=== PATIENT | male | born 1945 ===

== ENCOUNTER 2017-10-16 14:20 | Inpatient (IN) | payer MEDICARE ==
[~2017-10-16 14:20] MED LIST: ISOVUE-370 76%-LOCM 1 ML ONE
[2017-10-16 15:58] LABS: #Eosinphils 0.3 thou/uL (0.0-0.7); #Lymphocytes 1.5 thou/uL (1.20-3.40); #Monocytes 0.6 thou/uL (0.11-0.59); #Neutrophils 7.2 thou/uL (1.40-6.50); %Basophils 0.2 % (0.0-1.0); %Eosinophils 3.1 % (0.0-10.0); %Lymphocytes 15.5 % (21.0-51.0); %Monocytes 5.8 % (0.0-10.0); %Neutrophils 75.5 % (42.0-75.0); Hemoglobin 9.8 g/dL (14.0-18.0); Mean Corpuscular HGB CONC 30.9 g/dL (32.0-36.0); Mean Corpuscular Hemoglobin 20.3 pg (27.0-31.0); Mean Corpuscular Volume 65.8 fL (78.0-98.0); Mean Platelet Volume 10.7 fL (7.4-10.4); Platelet Count 205 thou/uL (130-400); RBC Distribution Width 16.3 % (11.5-14.5); White Blood Cell (WBC) Count 9.6 thou/uL (4.8-10.8)
[2017-10-16 16:05] LABS: Bilirubin Negative (Negative); Blood, Urine Negative (Negative); Clarity CLEAR (Clear); Glucose, Urine (Dipstick) 100 mg/dL (Negative); Leukocyte Small (Negative); Nitrite Negative (Negative); Protein, Urine (Dipstick) 100 mg/dL (Neg-Trace); Specific Gravity, Urine 1.007 (1.002-1.036); Urobilinogen 0.2 mg/dL (0.2-1.0); pH, Urine 6.5 (5.0-9.0)
[2017-10-16 16:07] LABS: Bacteria/HPF Rare-Few HPF (None Seen); Hyaline Casts/LPF 0-3 HYALINE CAST LPF (0-3 Hyaline); Pathc Cast-AUWi Flag 0.29 (0-2.49); RBC/HPF 0-3 HPF (0-3); Squamous Epithelial 0-3 HPF (0-3)
[2017-10-16 16:13] LABS: Anisocytosis SLIGHT = 6-15 cells (100X) (0-5/hpf); Elliptocytes SLIGHT = 2-5 cells (100X) (0-1/hpf); Hypochromia SLIGHT = 6-15 cells (100X) (0-5/hpf); Large Platelets SLIGHT; MDiff Complete? YES; Microcytosis SLIGHT = 6-15 cells (100X) (0-5/hpf); Ovalocytes SLIGHT = 2-5 cells (100X) (0-1/hpf); PLT Morphology Comment Appears Adequate; Polychromasia SLIGHT = 2-3 cells (100X) (0-2/hpf); Tear Drops SLIGHT = 2-5 cells (100X) (0-1/hpf)
[2017-10-16 16:17] LABS: ALT (SGPT) 10 U/L (8-55); AST (SGOT) 11 U/L (5-34); Albumin 3.4 g/dL (3.4-4.8); Alkaline Phosphatase 59 U/L (40-150); Anion Gap 9 mmol/L (10-20); BUN (Urea Nitrogen) 21 mg/dL (8.4-25.7); Bilirubin, Total 0.3 mg/dL (0.2-1.2); Calc. Creatinine Clearance 0 mL/min (70-130); Carbon Dioxide 35 mmol/L (23-31); Chloride 97 mmol/L (98-107); Estimated GFR-MDRD 58; Globulin 2.9 g/dL (2.4-3.5); Glucose 228 mg/dL (83-110); Potassium 4.4 mmol/L (3.5-5.1); Protein, Total 6.3 g/dL (5.8-8.1); Sodium 137 mmol/L (136-145)
--- NOTE | 2017-10-16 16:17 | RAD ---
PORTABLE CHEST: 10/16/17 HISTORY: Mental status change. No comparison. Heart is mildly prominent in size although accentuated by this projection. There is mild vascular eng orgement. No focal infiltrate or significant effusion. IMPRESSION: Heart is mildly enlarged with mild vascular engorgement. POS: [facility]
[2017-10-16 16:52] LABS: Calcium 14.5 mg/dL (7.8-10.44)
--- NOTE | 2017-10-16 16:56 | CT ---
CT HEAD NONCONTRAST: HISTORY: Altered mental status. FINDINGS: There is no evidence of acute intracranial hemorrhage or infarct. The ventricles appear normal in si ze, shape, and position. Mild diffuse cortical atrophy, chronic ischemic small vessel disease, and s cattered old lacunar infarcts. No mass effect or shift of midline structures. The visualized parana mei sinuses remain well aerated. Prominent edema and partially visualized, embedded radiodensities w ithin the right facial soft tissues. IMPRESSION: No acute intracranial abnormalities demonstrated. CT face is pending. POS: [facility]
[2017-10-16] MEDS ORDERED: Sodium Chloride 0.9% 1,000 ML IV SCH ×2 (18:00)
[2017-10-16] MEDS ORDERED: Piperacillin/Tazobactam 4.5 GM VIAL ONE (18:01)
--- NOTE | 2017-10-16 18:21 | CT ---
CT MAXILLOFACIAL WITH CONTRAST: 10/16/17 HISTORY: 72-year-old male with facial infection and facial pain. TECHNIQUE: IV injection of 70 mL of Isovue 370. 90 second delayed scan from slightly superior to frontal sinuses to the C5-6 level. FINDINGS: There is a small fluid level in the dependent portion of the sphenoid sinus. Otherwise, the paranasal sinuses are clear. The bilateral tympanomastoid cavities are grossly clear. No periostitis, permeati ve lesion, osteoblastic lesion, osteolytic lesion, or fracture is identified. There is a cluster of m etallic surgical clips in the right submandibular space and along the platysma adjacent to the right submandibular space. There is another cluster of fewer surgical clips more superiorly and laterally a t the interface of a free surgical flap that consists mostly of fatty tissue laterally, and the soft tissue density material in what is probably part of the resected site in the soft tissues superficial to the right masseter muscle. Inferior to that, in the superficial fat in the right anterolateral portion of the face lateral to th e jaw, there are at least two soft tissue density masses that both have exophytic components that pro trude through the skin or at least indent the skin. The more anterior one measures approximately 2.5 x 1.5 x 1.5 cm (axial image 54 of 85 series 5; coronal image 30 of 84, series 700). Located a distanc e of approximately 1.5 to 2 cm posterolateral to that, there is a smaller one measuring approximately 1 x 1.5 x 1 cm, axial image 54 of 85, series 5; coronal image 38 of 84, series 700). There is more i ll-defined soft tissue thickening contiguous from the posterior aspect of that second smaller nodule to the region of multiple surgical clips, which subsequently abuts the anterior aspect of the right p arotid gland. Located much more superiorly, lateral to the right zygomatic arch and lateral to the right temporalis muscle, there is larger soft tissue density measuring approximately 6 cm anteroposterior x 6 cm cran iocaudal x 2 cm transverse (axial image 27 of 85, series 5; coronal image 35 of 84, series 700). This extends to the lateral preseptal, periorbital region. It could represent cellulitis or recurrent elisa plastic tumor. The latter is favored. There is no postseptal/intraorbital invasion. There is not only skin thickening throughout the surgical flap, but also fat stranding in different p ortions of the flap, especially in the right malar region, and the regions superficial to the right s ubmandibular space, consistent with edema. There is no organized fluid collection to indicate a drain able abscess. IMPRESSION: 1. Postsurgical changes in the superficial soft tissues of the right face, with surgical flap. 2. Edema in multiple areas of the surgical flap, including right malar region and the regions bowens perficial to the right submandibular space. Given the clinical history of infection, this would be co nsistent with cellulitis. 3. No abscess. 4. At least 3 focal soft tissue density material in two different areas in the region of the fla p suspicious for neoplastic tumor recurrence. POS: [facility]
[2017-10-16 22:50] LABS: Anion Gap 8 mmol/L (10-20); BUN (Urea Nitrogen) 21 mg/dL (8.4-25.7); Calc. Creatinine Clearance 78 mL/min (70-130); Carbon Dioxide 33 mmol/L (23-31); Chloride 100 mmol/L (98-107); Estimated GFR-MDRD 64; Glucose 231 mg/dL (83-110); Potassium 4.4 mmol/L (3.5-5.1); Sodium 137 mmol/L (136-145)
[2017-10-16 22:57] LABS: Calcium 13.4 mg/dL (7.8-10.44)
[2017-10-17] MEDS ORDERED: Ondansetron HCl/PF 4 MG/2 ML Vial IVP PRN (00:22)
[2017-10-17] MEDS ORDERED: hydrALAZINE 20 MG/ML VIAL SLOW IVP PRN (00:22)
[2017-10-17] MEDS ORDERED: Ipratropium Bromide 2.5 ml Neb NEB PRN (00:22)
[2017-10-17] MEDS ORDERED: Dextrose 5% in Water 1,000 ML IV PRN (00:22)
[2017-10-17] MEDS ORDERED: Dextrose 50% Abboject 50 ML SYRINGE SLOW IVP PRN (00:22)
--- NOTE | 2017-10-17 01:53 | HP ---
PRIMARY CARE PHYSICIAN: Dr. Amadeo Reyez. CHIEF COMPLAINT: Confusion and concern for facial cellulitis. HISTORY OF PRESENT ILLNESS: Mr. 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 He says that he gets his treatment at [facility]. He has been apparently staying at the [facility]. The exact details of which are unclear. Currently, the patient is in his room alone and his is left, so therefor e I am not able to get much history, but in review of the records, he was apparently sent over from [facility] because they were concerned that he appeared lethargic and confused and there were co ncerns that the area where he has had a skin graft for an angiosarcoma had become infected. They als o checked some lab work at the [facility] and discovered that his calcium level was 1 5.5, and he was then transferred over to our facility for further evaluation. Currently, when I come to see the patient, he is lying in the bed, watching TV. He is awake and alert. He knows that it i s 2018. He is not sure of the month. When asked how he is feeling, he says he hurts all over, but t his has been something that has been a problem for some time. He is not really sure why he is here i the [facility]. When I told him that his calcium level was high, he actually told me that his calciu m level has been high for over 30 years and that they are not sure why it is elevated and he currentl y other than having some complaints as far as body aches, he says primarily when he moves. He has no other complaints. He denies any abdominal pain, no nausea, no vomiting. He says his bowels have be en relatively regular. No hematochezia, no melena. REVIEW OF SYSTEMS: All systems were reviewed and are negative except for that mentioned in history o f present illness. PAST MEDICAL HISTORY: Taken from the records and includes angiosarcoma of the face, congestive heart failure unknown type, diabetes mellitus type 2, gastroesophageal reflux disease, hyperlipidemia, hyp ertension, history of cerebral vascular disease, COPD, and kidney stones. PAST SURGICAL HISTORY: He has had a cholecystectomy, colonoscopy in the right cheek, resection of th e tumor, and a skin graft. ALLERGIES: METFORMIN and SULFA. SOCIAL HISTORY: He is . He is a former, nondrinker. CODE STATUS: Unsure, but likely FULL CODE. Do not that he is capable of making that determination n ow. FAMILY HISTORY: Diabetes mellitus in the family. CURRENT MEDICATIONS: There is actually 2 sets of medications listed some from the ER and then some l isted slightly different that is coming from the care home records, it appears as if the nursing ome records are likely more accurate, this is a history and physical from Dr. Sofía yeung nd in that record it is listed he is on allopurinol 300 mg daily, Eliquis 5 mg twice a day, aspirin 8 1 mg daily, Lipitor 20 mg daily, Bumex 1 mg twice a day, citalopram 20 mg daily, Temovate solution to the scalp twice a day, digoxin 0.25 mg daily, diltiazem CD 120 mg daily, fluocinonide 0.05% daily, f olic acid 1 mg daily, gabapentin 100 mg twice a day, Lantus insulin 30 units twice a day, lispro 3 ti mes a day, Atrovent 3 times a day as needed, Xalatan 1 drop to both eyes daily, losartan 12.5 mg saul y, magnesium oxide 500 mg daily, Bactroban twice a day, nystatin twice a day, MiraLax 17 grams daily, and senna one tablet twice a day. PHYSICAL EXAMINATION: GENERAL: He is alert. He is oriented to place to self and the time. HEENT: His pupils are equal, round, and reactive. His extraocular muscles are intact. His sclerae anicteric. He does have some redness to the right side of his face and around the incision of the pr evious skin graft with a punctate lesion towards the base of the incision. NECK: There is no adenopathy, no bruits. LUNGS: Clear. No wheezing, no rales. CARDIOVASCULAR: He had a normal S1, S2. There was no S3 or S4. No murmurs, clicks, or rubs. ABDOMEN: Obese, it is soft, it is nontender, nondistended. Positive for bowel sounds. There is no rebound or guarding. EXTREMITIES: There is no clubbing, cyanosis, no edema. SKIN/INTEGUMENT. Again, he had the skin changes on his face previously mentioned. NEUROLOGIC: He is alert and oriented x3. He is awake and alert. He does not appear lethargic. He is able to answer questions in full complete sentences and again sitting up watching TV. He appears clinically stable. LABORATORY RESULTS: Sodium 137, potassium 4.4, chloride is 97, CO2 is 35, BUN of 21, creatinine 1.22 , glucose is 228, calcium was 14.5. White blood cell count is 9.6, hemoglobin 9.8, hematocrit is 31. 6, platelet count is 205. Urinalysis was essentially negative. He had a CT scan of the facial bones showing some post-surgical changes in the soft tissues of the right face with free surgical flap. T here was some edema and multiple areas including the right malar region, which would be consistent wi th cellulitis. There was no abscess noted, and there were some soft tissue density in two different areas in the region of the flap suspicious for neoplastic tumor recurrence. CT scan of the brain marizol wing no acute abnormalities. ASSESSMENT AND PLAN: This is a 72-year-old gentleman that presents to the emergency room who was sen t over from the long term facility for concerns of cellulitis in the face, which appears to be proven by CT scan. He was also reportedly to have been lethargic in the nursing facility. This is l ikely as a result of hypercalcemia. He will be admitted to the medical telemetry. Telemetry is due to the elevated calcium level. 1. With regard to cellulitis, he will be placed on broad-spectrum antibiotics primarily to cover for Gram-positive organisms such as Strep and Staph. Culture results from an area that appears to be dr castellanos from the face can be obtained to help to a tailor antibiotic coverage. 2. With regard to the hypercalcemia, this could be related to his angiosarcoma; however, this is not the typical cancer, which is associated with hypercalcemia and given that he reports that he has had high calcium for 30 years. This could be due to a familiar hypocalciuric hypercalcemia if his recol lection is correct. Therefore, we will continue the IV fluid administration. Check an intact PTH as well as a PTH related peptide level as well as his urine calcium to help us distinguish the cause of the hypercalcemia. He seems to be clinically improving with hydration alone. If this is a hypercal cemia associated with malignancy and if his serum calcium level remains elevated after hydration, the n treatment with a bisphosphonate such as Zometa may be indicated. 3. Diabetes mellitus, we will continue his usual medications regarding diabetes as well as sliding s liza insulin. 4. Congestive heart failure, questionable type. He appears to be clinically compensated again we wi ll continue his usual home medications. 5. Hypertension as before. Continue home medications and p.r.n. medicines as needed. 6. Chronic obstructive pulmonary disease. Continue his home medications as well as p.r.n. DuoNebs. He is on Eliquis not entirely sure on the reason; however, this will be actually a reading through h is chart, it looks like he does have a history of paroxysmal atrial fibrillation therefore, we will g o ahead and continue on Eliquis and as such, he will not need any deep venous thrombosis prophylaxis.
[2017-10-17] MEDS: Sodium Chloride 0.9% 1,000 ML IV SCH ×3 (02:00→14:29)
[2017-10-17] MEDS: cefTRIAXone\\ROCEPHIN 1 GM in Sodium Chloride 0.9% 100 ML IVPB SCH (05:24)
[2017-10-17 06:03] LABS: #Eosinphils 0.3 thou/uL (0.0-0.7); #Lymphocytes 0.7 thou/uL (1.20-3.40); #Monocytes 0.4 thou/uL (0.11-0.59); #Neutrophils 6.5 thou/uL (1.40-6.50); %Basophils 0.5 % (0.0-1.0); %Eosinophils 3.4 % (0.0-10.0); %Lymphocytes 9.4 % (21.0-51.0); %Monocytes 4.5 % (0.0-10.0); %Neutrophils 82.3 % (42.0-75.0); Hemoglobin 9.1 g/dL (14.0-18.0); Mean Corpuscular HGB CONC 30.7 g/dL (32.0-36.0); Mean Corpuscular Hemoglobin 20.3 pg (27.0-31.0); Mean Corpuscular Volume 66.3 fL (78.0-98.0); Mean Platelet Volume 10.8 fL (7.4-10.4); Platelet Count 186 thou/uL (130-400); RBC Distribution Width 16.2 % (11.5-14.5); Red Blood Cell (RBC) Count 4.45 mill/uL (4.70-6.10); White Blood Cell (WBC) Count 7.9 thou/uL (4.8-10.8)
[2017-10-17 06:04] LABS: Anion Gap 7 mmol/L (10-20); BUN (Urea Nitrogen) 20 mg/dL (8.4-25.7); Calc. Creatinine Clearance 88 mL/min (70-130); Carbon Dioxide 34 mmol/L (23-31); Chloride 101 mmol/L (98-107); Estimated GFR-MDRD 74; Glucose 161 mg/dL (83-110); Magnesium 1.2 mg/dL (1.6-2.6); Potassium 4.7 mmol/L (3.5-5.1); Sodium 137 mmol/L (136-145)
[2017-10-17 06:24] LABS: Free T4 (Free Thyroxine) 0.76 ng/dL (0.70-1.48); Thyroid Stimulating Hormone 0.9898 uIU/mL (0.35-4.94)
[2017-10-17] MEDS ORDERED: Zoledronic Acid 4 MG in Sodium Chloride 0.9% 100 ML IVPB SCH (06:30)
[2017-10-17] MEDS: HumaLOG 300 UNITS/3 ML VIAL SC SCH ×3 (08:50→17:08)
[2017-10-17] MEDS: Apixaban 5 MG TAB PO SCH ×2 (08:51→22:15)
[2017-10-17] MEDS: Vancomycin HCl 1 GM in Premix Bag 1 BAG IVPB SCH ×2 (08:51→22:15)
[2017-10-17] MEDS: Folic Acid 1 MG TAB PO SCH (08:52)
[2017-10-17] MEDS: Atorvastatin Calcium 20 MG TAB PO SCH (08:52)
[2017-10-17] MEDS: Digoxin 0.25 MG TAB PO SCH (08:52)
[2017-10-17] MEDS: Gabapentin 100 MG CAP PO SCH ×2 (08:52→22:08)
[2017-10-17] MEDS: Citalopram 20 MG TAB PO SCH (08:52)
[2017-10-17] MEDS: Bumetanide 1 MG TAB PO SCH ×2 (08:53→14:27)
[2017-10-17] MEDS: Allopurinol 300 MG TAB PO SCH (08:53)
[2017-10-17] MEDS: Polyethylene Glycol 3350 17 GM Packet PO SCH (08:55)
[2017-10-17] MEDS ORDERED: Non-Formulary Item 1 EACH (Insulin Glargine,Hum.Rec.Anlog [Lantus Solostar] 30 UNIT) SQ SCH (09:00)
[2017-10-17] MEDS ORDERED: Calcitonin,Salmon,Synthetic 200 UNITS/ML SC SCH ×2 (09:00)
[2017-10-17 09:49] LABS: Ref Lab Test Ordered PTH RELATED PEPETIDE; Reference Lab Name LABCORP
[2017-10-17] MEDS: Insulin Glargine 30 UNITS in Pre-Filled Syringe 1 EACH SC SCH ×2 (10:16→22:10)
--- NOTE | 2017-10-17 17:20 | PDOC.PN ---
- Subjective Encounter Start Date: 10/17/17 Encounter Start Time: 17:05 Subjective: f/u for ? facial cellulitis and hypercalcemia. Currently on Rocephin -: and Vancomycin empirically. Longstanding hypercalcemia for decades -: per pt. c/o pain in back and buttocks. - Objective Resuscitation Status: Resuscitation Status FULL:Full Resuscitation MAR Reviewed: Yes Vital Signs & Weight: Vital Signs (12 hours) Temp Pulse Resp BP Pulse Ox 10/17/17 15:19 98.1 F 59 L 18 148/70 H 97 10/17/17 12:36 98.3 F 76 16 140/67 98 10/17/17 08:30 98.9 F 78 18 141/65 H 98 Weight Admit Weight 209 lb Weight 206 lb I&O: 10/16/17 10/17/17 10/18/17 06:59 06:59 06:59 Intake Total 980 Output Total 900 Balance 80 Result Diagrams: 10/17/17 04:59 10/17/17 04:59 Additional Labs: Accuchecks 10/17/17 10/17/17 10/17/17 17:00 10:39 05:59 POC Glucose 179 H 243 H 169 H Microbiology 10/16/17 15:50 Urine voided Urine Culture - Preliminary 10/16/17 15:36 Venous blood - Left Arm Blood Culture - Preliminary Specimen has been received and culture in progress. No Growth to date. 10/16/17 15:28 Venous blood - Right Hand Blood Culture - Preliminary Specimen has been received and culture in progress. No Growth to date. Laboratory Tests 10/16/17 10/16/17 10/16/17 15:37 15:37 22:11 Hgb 9.8 L Calcium 14.5 H* 13.4 H* 25-OH Vitamin D Total Free T4 TSH 3rd Generation PTH Intact Urine Calcium 10/17/17 10/17/17 10/17/17 04:59 04:59 04:59 Hgb Calcium 25-OH Vitamin D Total 17.3 L Free T4 0.76 TSH 3rd Generation 0.9898 PTH Intact 403.1 H Urine Calcium 10/17/17 09:16 Hgb Calcium 25-OH Vitamin D Total Free T4 TSH 3rd Generation PTH Intact Urine Calcium 9.4 Microbiology 10/16/17 15:50 Urine voided Urine Culture - Preliminary 10/16/17 15:36 Venous blood - Left Arm Blood Culture - Preliminary Specimen has been received and culture in progress. No Growth to date. 10/16/17 15:28 Venous blood - Right Hand Blood Culture - Preliminary Specimen has been received and culture in progress. No Growth to date. Laboratory Tests 10/16/17 10/16/17 10/16/17 15:37 15:37 22:11 Hgb 9.8 L Calcium 14.5 H* 13.4 H* 25-OH Vitamin D Total Free T4 TSH 3rd Generation PTH Intact Urine Calcium 10/17/17 10/17/17 10/17/17 04:59 04:59 04:59 Hgb Calcium 25-OH Vitamin D Total 17.3 L Free T4 0.76 TSH 3rd Generation 0.9898 PTH Intact 403.1 H Urine Calcium 10/17/17 09:16 Hgb Calcium 25-OH Vitamin D Total Free T4 TSH 3rd Generation PTH Intact Urine Calcium 9.4 Radiology Reviewed by me: Yes (CT facial bones - edema of R face ) EKG Reviewed by me: Yes (Tele - A-fib in 70's) Phys Exam - Physical Examination alert, responsive R face skin graft in place, mild erythema of suture line HEENT: PERRLA, sclera anicteric, oral pharynx no lesions Neck: no nodes, no JVD, supple, full ROM diminished in bases S1, S2 Cardiovascular: no significant murmur, no rub, irregular Gastrointestinal: soft, non-tender, no distention, positive bowel sounds Musculoskeletal: no edema, pulses present A x O x 2 Deviation from normal: Stage III decubitus buttock ulcer Skin: normal turgor, cap refill <2 seconds Dx/Plan (1) Facial cellulitis Code(s): L03.211 - CELLULITIS OF FACE Status: Acute Comment: Suspected, continue Rocephin/Vancomycin and monitor clinically (2) Hypercalcemia Code(s): E83.52 - HYPERCALCEMIA Status: Chronic Comment: Apparently chronic per pt report, check 24h urine, continue IVF's 75ml/h (3) Microcytic anemia Code(s): D50.9 - IRON DEFICIENCY ANEMIA, UNSPECIFIED Status: Chronic Comment : Chronic, serial H/H (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 - MALIG NEOPLM OF CONN AND SOFT TISSUE OF HEAD, FACE AND NECK Status: Chronic Comment: s/p R cheek skin grafting, supportive mgmt (5) Chronic atrial fibrillation Code(s): I48.2 - CHRONIC ATRIAL FIBRILLATION Status: Chronic Comment: Rate controlled, continue Digoxin and Diltiazem, continue Eliquis (6) Decubitus ulcer of buttock, stage 3 Code(s): L89.303 - PRESSURE ULCER OF UNSPECIFIED BUTTOCK, STAGE 3 Status: Acute Qualifiers: Laterality: unspecified laterality Qualified Code(s): L89.303 - Pressure ulcer of unspecified buttock, stage 3 Comment: WCT for local care, consult gen surgery for evaluation, low-air loss mattress - Plan continue antibiotics, PT/OT, sr. social media & mobile manager, DVT proph w/SCDs Stable overall -: Continue Rocephin/Vancomycin -: WCT for local care of decubitus ulcer -: Consult Gen Surgery for potential debridement -: AM lab: BMP * .
[2017-10-17] MEDS ORDERED: Haloperidol Lactate 5 MG/ML VIAL IM SCH (21:00)
[2017-10-17] MEDS: Latanoprost 0.005% Ophth Soln 2.5 ml Bottle EA EYE SCH (22:09)
[2017-10-17] MEDS: Magnesium Oxide 400 MG TAB PO SCH (22:09)
[2017-10-18] MEDS: Sodium Chloride 0.9% 1,000 ML IV SCH ×2 (02:18→16:41)
[2017-10-18] MEDS: cefTRIAXone\\ROCEPHIN 1 GM in Sodium Chloride 0.9% 100 ML IVPB SCH (04:30)
[2017-10-18 05:14] LABS: Anion Gap 16 mmol/L (10-20); BUN (Urea Nitrogen) 16 mg/dL (8.4-25.7); Calc. Creatinine Clearance 97 mL/min (70-130); Calcium 13.4 mg/dL (7.8-10.44); Carbon Dioxide 22 mmol/L (23-31); Chloride 105 mmol/L (98-107); Estimated GFR-MDRD 85; Glucose 122 mg/dL (83-110); Potassium 5.7 mmol/L (3.5-5.1); Sodium 137 mmol/L (136-145)
[2017-10-18 09:05] LABS: Vancomycin, Trough 13.9 ug/mL
[2017-10-18] MEDS: Citalopram 20 MG TAB PO SCH (09:55)
[2017-10-18] MEDS: Vancomycin HCl 1 GM in Premix Bag 1 BAG IVPB SCH (09:55)
[2017-10-18] MEDS: Atorvastatin Calcium 20 MG TAB PO SCH (09:55)
[2017-10-18] MEDS: Folic Acid 1 MG TAB PO SCH (09:55)
[2017-10-18] MEDS: Magnesium Oxide 400 MG TAB PO SCH ×2 (09:55→20:58)
[2017-10-18] MEDS: Polyethylene Glycol 3350 17 GM Packet PO SCH (09:55)
[2017-10-18] MEDS: Digoxin 0.25 MG TAB PO SCH (09:55)
[2017-10-18] MEDS: Bumetanide 1 MG TAB PO SCH ×2 (09:55→14:55)
[2017-10-18] MEDS: Apixaban 5 MG TAB PO SCH ×2 (09:55→20:57)
[2017-10-18] MEDS: Allopurinol 300 MG TAB PO SCH (09:55)
[2017-10-18] MEDS: HumaLOG 300 UNITS/3 ML VIAL SC SCH ×3 (09:59→16:41)
[2017-10-18] MEDS: Insulin Glargine 30 UNITS in Pre-Filled Syringe 1 EACH SC SCH ×2 (09:59→20:57)
[2017-10-18] MEDS: Gabapentin 100 MG CAP PO SCH ×2 (10:02→20:57)
[2017-10-18] MEDS ORDERED: Lorazepam 2 MG/ML VIAL SLOW IVP SCH (11:45)
--- NOTE | 2017-10-18 15:11 | PDOC.PN ---
- Subjective Encounter Start Date: 10/18/17 Encounter Start Time: 15:00 Subjective: f/u for ? facial cellulitis, angiosarcoma of face, hypercalcemia and -: decubitus ulcer of L buttock. Nsg reports intermittent confusion. -: Haldol given overnight for agitation. - Objective Resuscitation Status: Resuscitation Status FULL:Full Resuscitation MAR Reviewed: Yes Vital Signs & Weight: Vital Signs (12 hours) Temp Pulse Resp BP BP Pulse Ox 10/18/17 14:16 94 L 10/18/17 09:55 74 10/18/17 08:20 97.9 F 74 20 160/79 H 96 10/18/17 08:00 97.9 F 74 20 96 10/18/17 03:19 98.2 F 57 L 17 126/60 95 Weight Admit Weight 209 lb Weight 207 lb I&O: 10/17/17 10/18/17 10/19/17 06:59 06:59 06:59 Intake Total 980 3765 Output Total 900 1880 Balance 80 1885 Result Diagrams: 10/17/17 04:59 10/18/17 04:35 Additional Labs: Accuchecks 10/18/17 10/18/17 10/17/17 10:49 05:50 20:49 POC Glucose 242 H 134 H 157 H 10/17/17 17:00 POC Glucose 179 H Microbiology 10/16/17 15:50 Urine voided Urine Culture - Preliminary 10/16/17 15:36 Venous blood - Left Arm Blood Culture - Preliminary Specimen has been received and culture in progress. No Growth to date. 10/16/17 15:28 Venous blood - Right Hand Blood Culture - Preliminary Specimen has been received and culture in progress. No Growth to date. Laboratory Tests 10/16/17 10/16/17 10/16/17 15:37 15:37 22:11 Hgb 9.8 L Potassium Calcium 14.5 H* 13.4 H* 25-OH Vitamin D Total Free T4 TSH 3rd Generation PTH Intact Urine Calcium Ur Calcium 24 Hr Vancomycin Trough 10/17/17 10/17/17 10/17/17 04:59 04:59 04:59 Hgb Potassium 4.7 Calcium 14.0 H* 25-OH Vitamin D Total Free T4 0.76 TSH 3rd Generation 0.9898 PTH Intact 403.1 H Urine Calcium Ur Calcium 24 Hr Vancomycin Trough 10/17/17 10/17/17 10/18/17 04:59 09:16 04:35 Hgb Potassium Calcium 25-OH Vitamin D Total 17.3 L Free T4 TSH 3rd Generation PTH Intact Urine Calcium 9.4 Ur Calcium 24 Hr Vancomycin Trough 13.9 10/18/17 10/18/17 04:35 06:00 Hgb Potassium Calcium 13.4 H* 25-OH Vitamin D Total Free T4 TSH 3rd Generation PTH Intact Urine Calcium Ur Calcium 24 Hr 324 H Vancomycin Trough EKG Reviewed by me: Yes (Tele - A-fib in 60's) Phys Exam - Physical Examination Constitutional: NAD HEENT: PERRLA, sclera anicteric, oral pharynx no lesions Neck: no nodes, no JVD, supple, full ROM diminished in bases S1, S2 Cardiovascular: no significant murmur, no rub, irregular Gastrointestinal: soft, non-tender, no distention, positive bowel sounds Musculoskeletal: pulses present A x O x 2 Skin: normal turgor, cap refill <2 seconds Dx/Plan (1) Facial cellulitis Code(s): L03.211 - CELLULITIS OF FACE Status: Acute Comment: Suspected, continue Rocephin/Vancomycin and monitor clinically (2) Hypercalcemia Code(s): E83.52 - HYPERCALCEMIA Status: Chronic Comment: Apparently chronic per pt report, check 24h urine, continue IVF's 75ml/h (3) Microcytic anemia Code(s): D50.9 - IRON DEFICIENCY ANEMIA, UNSPECIFIED Status: Chronic Comment : Chronic, serial H/H (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 - MALIG NEOPLM OF CONN AND SOFT TISSUE OF HEAD, FACE AND NECK Status: Chronic Comment: s/p R cheek skin grafting, supportive mgmt (5) Chronic atrial fibrillation Code(s): I48.2 - CHRONIC ATRIAL FIBRILLATION Status: Chronic Comment: Rate controlled, continue Digoxin and Diltiazem, continue Eliquis (6) Decubitus ulcer of buttock, stage 3 Code(s): L89.303 - PRESSURE ULCER OF UNSPECIFIED BUTTOCK, STAGE 3 Status: Acute Qualifiers: Laterality: left Qualified Code(s): L89.323 - Pressure ulcer of left buttock, stage 3 Comment: WCT for local care, consult gen surgery for evaluation, low-air loss mattress, plan for debridement in 24h - Plan continue antibiotics, PT/OT, transition social worker, DVT proph w/SCDs Stable currently -: Continue Vancomycin/Rocephin -: Appreciate Gen Surgery assistance -: Continue IVF's -: Ativan 0.5mg IV q6h prn anxiety/agitation * AM lab: BMP, CBC
[2017-10-18] MEDS: Latanoprost 0.005% Ophth Soln 2.5 ml Bottle EA EYE SCH (20:57)
[2017-10-18] MEDS: Losartan 25 MG TAB PO SCH (20:58)
[2017-10-18] MEDS: Vancomycin HCl 1.25 GM in Sodium Chloride 0.9% 250 ML 250 ML IVPB SCH (20:58)
[2017-10-18] MEDS: HumaLOG 300 UNITS/3 ML VIAL SC PRN (20:59)
[2017-10-18] MEDS: Lorazepam 2 MG/ML VIAL SLOW IVP PRN (20:59)
[2017-10-18] MEDS: Acetaminophen 325 MG TAB PO PRN (20:59)
[2017-10-19] MEDS: cefTRIAXone\\ROCEPHIN 1 GM in Sodium Chloride 0.9% 100 ML IVPB SCH (05:26)
[2017-10-19] MEDS: Sodium Chloride 0.9% 1,000 ML IV SCH ×2 (05:27→20:43)
[2017-10-19 05:32] LABS: Anion Gap 7 mmol/L (10-20); BUN (Urea Nitrogen) 17 mg/dL (8.4-25.7); Calc. Creatinine Clearance 101 mL/min (70-130); Carbon Dioxide 35 mmol/L (23-31); Chloride 101 mmol/L (98-107); Estimated GFR-MDRD 82; Glucose 114 mg/dL (83-110); Potassium 4.5 mmol/L (3.5-5.1); Sodium 138 mmol/L (136-145)
[2017-10-19 05:38] LABS: Calcium 13.3 mg/dL (7.8-10.44)
[2017-10-19 05:49] LABS: Band 8 % (5-11); Elliptocytes SLIGHT = 2-5 cells (100X) (0-1/hpf); Eosinophils 5 % (0-10); Hypochromia SLIGHT = 6-15 cells (100X) (0-5/hpf); Lymphocytes 30 % (21-51); MDiff Complete? YES; Mean Corpuscular HGB CONC 31.1 g/dL (32.0-36.0); Mean Corpuscular Hemoglobin 20.6 pg (27.0-31.0); Mean Corpuscular Volume 66.2 fL (78.0-98.0); Mean Platelet Volume 10.9 fL (7.4-10.4); Microcytosis SLIGHT = 6-15 cells (100X) (0-5/hpf); Monocytes 4 % (0-10); Myelocyte 1 % (0-0); Neutrophil 51 % (42-75); Platelet Count 175 thou/uL (130-400); RBC Distribution Width 16.1 % (11.5-14.5); Tear Drops SLIGHT = 2-5 cells (100X) (0-1/hpf); White Blood Cell (WBC) Count 6.7 thou/uL (4.8-10.8)
[2017-10-19] MEDS: HumaLOG 300 UNITS/3 ML VIAL SC SCH ×3 (07:39→16:42)
[2017-10-19] MEDS: Allopurinol 300 MG TAB PO SCH (07:39)
[2017-10-19] MEDS: Atorvastatin Calcium 20 MG TAB PO SCH (07:39)
[2017-10-19] MEDS: Digoxin 0.25 MG TAB PO SCH (07:39)
[2017-10-19] MEDS: Apixaban 5 MG TAB PO SCH ×2 (07:39→20:44)
[2017-10-19] MEDS: Magnesium Oxide 400 MG TAB PO SCH ×2 (07:40→20:45)
[2017-10-19] MEDS: Polyethylene Glycol 3350 17 GM Packet PO SCH (07:40)
[2017-10-19] MEDS: Citalopram 20 MG TAB PO SCH (07:40)
[2017-10-19] MEDS: Folic Acid 1 MG TAB PO SCH (07:40)
[2017-10-19] MEDS: Gabapentin 100 MG CAP PO SCH ×2 (07:40→20:44)
[2017-10-19] MEDS: Vancomycin HCl 1.25 GM in Sodium Chloride 0.9% 250 ML 250 ML IVPB SCH ×2 (07:48→20:45)
[2017-10-19] MEDS ORDERED: Midazolam HCl 2 mg/2 ml Vial ONE (10:55)
[2017-10-19] MEDS ORDERED: Fentanyl 100 MCG/2 ML VIAL ONE (10:55)
[2017-10-19] MEDS ORDERED: SUGAMMADEX SODIUM 200 MG/2 ML VIAL ONE (12:33)
--- NOTE | 2017-10-19 12:50 | OP ---
DATE OF OPERATION: 10/19/2017 PREOPERATIVE DIAGNOSIS: A 5 x 4 x 2 cm left gluteal necrotic wound. POSTOPERATIVE DIAGNOSIS: A 5 x 4 x 2 cm left gluteal necrotic wound. SURGERY PERFORMED: Excisional debridement of 5 x 4 x 2 cm left gluteal wound. SURGEON: Jacob Escalante D.O. ANESTHESIA: General endotracheal. ESTIMATED BLOOD LOSS: 10 mL. FLUIDS GIVEN: 600 mL crystalloids. SPONGE AND INSTRUMENT COUNT: Certified as correct x2. COMPLICATIONS: None apparent at time of operation. INDICATIONS FOR PROCEDURE: This is a 72-year-old man with left gluteal decubitus ulcer which require s debridement. He has a stage III decubitus ulcer. The patient was brought to the operating room fo r excisional debridement. Findings are consistent with 5 x 4 x 2 cm stage III necrotic left gluteal decubitus wound. DESCRIPTION OF PROCEDURE: Informed consent obtained from the patient who was brought to the operatin g room and placed in supine position. Following general anesthesia, the patient is placed in the pro ne position. The left buttock is widely sterilely prepped and draped in usual fashion. The necrotic wound was elliptically excised using a #10 scalpel. Incision is carried down to the level of the vi able fascia. The necrotic wound is elliptically excised and passed off the operative field for one t ransmission to pathology. Hemostasis achieved using cautery. The wound bed was irrigated with salin e and packed with saline saturated sterile gauze. Patient tolerated this procedure without any appar ent complication and was returned to recovery room in satisfactory condition.
[2017-10-19] MEDS: Insulin Glargine 30 UNITS in Pre-Filled Syringe 1 EACH SC SCH ×2 (13:38→20:47)
[2017-10-19] MEDS: Bumetanide 1 MG TAB PO SCH ×2 (13:38→14:07)
[2017-10-19] MEDS ORDERED: Succinylcholine Chloride 20 MG/ML 10 ml SYRINGE FS ONE (14:50)
[2017-10-19] MEDS ORDERED: Lidocaine 1% PF 5 ML VIAL ONE (14:50)
[2017-10-19 15:16] VITALS: BMI 35.3
--- NOTE | 2017-10-19 17:35 | PDOC.PN ---
- Subjective Encounter Start Date: 10/19/17 Encounter Start Time: 17:25 Subjective: f/u for L stage III decubitus ulcer s/p debridement 10/19/17. Feels ok -: and wants to eat. More calm today per family. - Objective Resuscitation Status: Resuscitation Status FULL:Full Resuscitation MAR Reviewed: Yes Vital Signs & Weight: Vital Signs (12 hours) Temp Pulse Resp BP Pulse Ox 10/19/17 14:05 97.5 F L 62 18 110/50 L 92 L 10/19/17 08:00 98.2 F 62 20 96 10/19/17 07:42 98.2 F 62 20 148/60 H 96 10/19/17 07:40 67 10/19/17 07:39 67 Weight Admit Weight 209 lb Weight 218 lb 12.8 oz I&O: 10/18/17 10/19/17 10/20/17 06:59 06:59 06:59 Intake Total 3765 1267 Output Total 1880 Balance 1885 1267 Result Diagrams: 10/19/17 04:36 10/19/17 04:36 Additional Labs: Accuchecks 10/19/17 10/18/17 04:26 19:41 POC Glucose 128 H 241 H Microbiology 10/16/17 15:50 Urine voided Urine Culture - Preliminary 10/16/17 15:36 Venous blood - Left Arm Blood Culture - Preliminary Specimen has been received and culture in progress. No Growth to date. 10/16/17 15:28 Venous blood - Right Hand Blood Culture - Preliminary Specimen has been received and culture in progress. No Growth to date. Laboratory Tests 10/16/17 10/16/17 10/16/17 15:37 15:37 22:11 Hgb 9.8 L Potassium Calcium 14.5 H* 13.4 H* 25-OH Vitamin D Total Free T4 TSH 3rd Generation PTH Intact Urine Calcium Ur Calcium 24 Hr Vancomycin Trough 10/17/17 10/17/17 10/17/17 04:59 04:59 04:59 Hgb Potassium 4.7 Calcium 14.0 H* 25-OH Vitamin D Total Free T4 0.76 TSH 3rd Generation 0.9898 PTH Intact 403.1 H Urine Calcium Ur Calcium 24 Hr Vancomycin Trough 10/17/17 10/17/17 10/18/17 04:59 09:16 04:35 Hgb Potassium Calcium 25-OH Vitamin D Total 17.3 L Free T4 TSH 3rd Generation PTH Intact Urine Calcium 9.4 Ur Calcium 24 Hr Vancomycin Trough 13.9 10/18/17 10/18/17 04:35 06:00 Hgb Potassium Calcium 13.4 H* 25-OH Vitamin D Total Free T4 TSH 3rd Generation PTH Intact Urine Calcium Ur Calcium 24 Hr 324 H Vancomycin Trough Phys Exam - Physical Examination Constitutional: NAD alert, responsive, smiles R facial post-surgical changes and skin graft in place HEENT: PERRLA, sclera anicteric, oral pharynx no lesions Neck: no nodes, no JVD, supple, full ROM Respiratory: no wheezing, no rales, no rhonchi, clear to auscultation bilateral S1, S2 Cardiovascular: RRR, no significant murmur, no rub, gallop Gastrointestinal: soft, non-tender, no distention, positive bowel sounds Musculoskeletal: pulses present, edema present A x O x 2 Skin: normal turgor, cap refill <2 seconds Dx/Plan (1) Facial cellulitis Code(s): L03.211 - CELLULITIS OF FACE Status: Acute Comment: Suspected, continue Rocephin/Vancomycin and monitor clinically (2) Hypercalcemia Code(s): E83.52 - HYPERCALCEMIA Status: Chronic Comment: Apparently chronic per pt report, check 24h urine, continue IVF's 75ml/h (3) Microcytic anemia Code(s): D50.9 - IRON DEFICIENCY ANEMIA, UNSPECIFIED Status: Chronic Comment : Chronic, serial H/H (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 - MALIG NEOPLM OF CONN AND SOFT TISSUE OF HEAD, FACE AND NECK Status: Chronic Comment: s/p R cheek skin grafting, supportive mgmt (5) Chronic atrial fibrillation Code(s): I48.2 - CHRONIC ATRIAL FIBRILLATION Status: Chronic Comment: Rate controlled, continue Digoxin and Diltiazem, continue Eliquis (6) Decubitus ulcer of buttock, stage 3 Code(s): L89.303 - PRESSURE ULCER OF UNSPECIFIED BUTTOCK, STAGE 3 Status: Acute Qualifiers: Laterality: left Qualified Code(s): L89.323 - Pressure ulcer of left buttock, stage 3 Comment: WCT for local care, s/p debridement 10/19/17, pain control - Plan plan discussed w/ family, continue antibiotics, PT/OT, adoption social worker, DVT proph w/SCDs Stable currently -: Continue Rocephin/Vancomycin -: Local WCT for decubitus ulcer -: Continue Lantus 30u sc BID -: Likely back to SNF in 48h * .
[2017-10-19] MEDS: Losartan 25 MG TAB PO SCH (20:44)
[2017-10-19] MEDS: Latanoprost 0.005% Ophth Soln 2.5 ml Bottle EA EYE SCH (20:44)
[2017-10-19] MEDS: Acetaminophen 325 MG TAB PO PRN (20:46)
[2017-10-20] MEDS: cefTRIAXone\\ROCEPHIN 1 GM in Sodium Chloride 0.9% 100 ML IVPB SCH (03:20)
[2017-10-20] MEDS: Sodium Chloride 0.9% 1,000 ML IV SCH ×2 (07:39→20:24)
[2017-10-20 08:11] LABS: Vancomycin, Trough 27.8 ug/mL
[2017-10-20] MEDS: Polyethylene Glycol 3350 17 GM Packet PO SCH (08:59)
[2017-10-20] MEDS: Apixaban 5 MG TAB PO SCH ×2 (09:00→20:24)
[2017-10-20] MEDS: Digoxin 0.25 MG TAB PO SCH (09:00)
[2017-10-20] MEDS: Magnesium Oxide 400 MG TAB PO SCH ×2 (09:00→20:24)
[2017-10-20] MEDS: Atorvastatin Calcium 20 MG TAB PO SCH (09:00)
[2017-10-20] MEDS: Insulin Glargine 30 UNITS in Pre-Filled Syringe 1 EACH SC SCH ×2 (09:00→20:34)
[2017-10-20] MEDS: Gabapentin 100 MG CAP PO SCH ×2 (09:00→20:24)
[2017-10-20] MEDS: Folic Acid 1 MG TAB PO SCH (09:00)
[2017-10-20] MEDS: Allopurinol 300 MG TAB PO SCH (09:00)
[2017-10-20] MEDS: Citalopram 20 MG TAB PO SCH (09:00)
[2017-10-20] MEDS: HumaLOG 300 UNITS/3 ML VIAL SC SCH ×3 (09:02→17:47)
[2017-10-20] MEDS: Bumetanide 1 MG TAB PO SCH ×2 (09:04→15:14)
[2017-10-20] MEDS: Lorazepam 2 MG/ML VIAL SLOW IVP PRN (09:15)
[2017-10-20] MEDS: HumaLOG 300 UNITS/3 ML VIAL SC PRN (12:37)
[2017-10-20] MEDS: Losartan 25 MG TAB PO SCH (20:24)
[2017-10-20] MEDS: Vancomycin HCl 1 GM in Premix Bag 1 BAG IVPB SCH (20:28)
[2017-10-20] MEDS: Latanoprost 0.005% Ophth Soln 2.5 ml Bottle EA EYE SCH (20:29)
[2017-10-20] MEDS: Acetaminophen 325 MG TAB PO PRN (20:35)
--- NOTE | 2017-10-20 21:01 | PDOC.PN ---
- Subjective Encounter Start Date: 10/20/17 Encounter Start Time: 19:30 Subjective: f/u for L gluteal decub ulcer s/p debridement POD #1. Feels ok overall -: with some pain in buttocks. - Objective Resuscitation Status: Resuscitation Status FULL:Full Resuscitation MAR Reviewed: Yes Vital Signs & Weight: Vital Signs (12 hours) Pulse Pulse Ox 10/20/17 09:16 94 L 10/20/17 09:15 74 L 10/20/17 09:00 85 Weight Admit Weight 209 lb Weight 218 lb 12.8 oz I&O: 10/19/17 10/20/17 10/21/17 06:59 06:59 06:59 Intake Total 1267 1860 960 Output Total 300 Balance 1267 1560 960 Result Diagrams: 10/19/17 04:36 10/19/17 04:36 Additional Labs: Accuchecks 10/20/17 10/20/17 10/20/17 19:55 16:02 11:25 POC Glucose 65 L 111 H 167 H 10/20/17 10/19/17 05:07 16:57 POC Glucose 198 H 119 H Microbiology 10/16/17 15:50 Urine voided Urine Culture - Preliminary 10/16/17 15:36 Venous blood - Left Arm Blood Culture - Preliminary Specimen has been received and culture in progress. No Growth to date. 10/16/17 15:28 Venous blood - Right Hand Blood Culture - Preliminary Specimen has been received and culture in progress. No Growth to date. Laboratory Tests 10/16/17 10/16/17 10/16/17 15:37 15:37 22:11 Hgb 9.8 L Potassium Calcium 14.5 H* 13.4 H* 25-OH Vitamin D Total Free T4 TSH 3rd Generation PTH Intact Urine Calcium Ur Calcium 24 Hr Vancomycin Trough 10/17/17 10/17/17 10/17/17 04:59 04:59 04:59 Hgb Potassium 4.7 Calcium 14.0 H* 25-OH Vitamin D Total Free T4 0.76 TSH 3rd Generation 0.9898 PTH Intact 403.1 H Urine Calcium Ur Calcium 24 Hr Vancomycin Trough 10/17/17 10/17/17 10/18/17 04:59 09:16 04:35 Hgb Potassium Calcium 25-OH Vitamin D Total 17.3 L Free T4 TSH 3rd Generation PTH Intact Urine Calcium 9.4 Ur Calcium 24 Hr Vancomycin Trough 13.9 10/18/17 10/18/17 04:35 06:00 Hgb Potassium Calcium 13.4 H* 25-OH Vitamin D Total Free T4 TSH 3rd Generation PTH Intact Urine Calcium Ur Calcium 24 Hr 324 H Vancomycin Trough Phys Exam - Physical Examination Constitutional: NAD R facial skin graft intact HEENT: PERRLA, sclera anicteric, oral pharynx no lesions Neck: no nodes, no JVD, supple, full ROM Respiratory: no wheezing, no rales, no rhonchi, clear to auscultation bilateral S1, S2 Cardiovascular: RRR, no significant murmur, no rub, gallop Gastrointestinal: soft, non-tender, no distention, positive bowel sounds Musculoskeletal: no edema, pulses present Neurological: moves all 4 limbs A x O x 2 Skin: normal turgor, cap refill <2 seconds Dx/Plan (1) Facial cellulitis Code(s): L03.211 - CELLULITIS OF FACE Status: Acute Comment: Suspected, continue Rocephin/Vancomycin and monitor clinically (2) Hypercalcemia Code(s): E83.52 - HYPERCALCEMIA Status: Chronic Comment: Apparently chronic per pt report, check 24h urine, continue IVF's 75ml/h (3) Microcytic anemia Code(s): D50.9 - IRON DEFICIENCY ANEMIA, UNSPECIFIED Status: Chronic Comment : Chronic, serial H/H (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 - MALIG NEOPLM OF CONN AND SOFT TISSUE OF HEAD, FACE AND NECK Status: Chronic Comment: s/p R cheek skin grafting, supportive mgmt (5) Chronic atrial fibrillation Code(s): I48.2 - CHRONIC ATRIAL FIBRILLATION Status: Chronic Comment: Rate controlled, continue Digoxin and Diltiazem, continue Eliquis (6) Decubitus ulcer of buttock, stage 3 Code(s): L89.303 - PRESSURE ULCER OF UNSPECIFIED BUTTOCK, STAGE 3 Status: Acute Qualifiers: Laterality: left Qualified Code(s): L89.323 - Pressure ulcer of left buttock, stage 3 Comment: WCT for local care, s/p debridement POD #1, pain control - Plan continue antibiotics, PT/OT, aids social worker, DVT proph w/SCDs Stable overall -: Continue Rocephin/Vancomycin -: WCT for local care -: Saline lock IVF -: Likely back to SNF in 24-48h * .
[2017-10-21] MEDS: cefTRIAXone\\ROCEPHIN 1 GM in Sodium Chloride 0.9% 100 ML IVPB SCH (03:50)
[2017-10-21] MEDS: Apixaban 5 MG TAB PO SCH ×2 (08:03→20:12)
[2017-10-21] MEDS: Gabapentin 100 MG CAP PO SCH ×2 (08:03→20:12)
[2017-10-21] MEDS: Citalopram 20 MG TAB PO SCH (08:03)
[2017-10-21] MEDS: Folic Acid 1 MG TAB PO SCH (08:03)
[2017-10-21] MEDS: Digoxin 0.25 MG TAB PO SCH (08:04)
[2017-10-21] MEDS: Bumetanide 1 MG TAB PO SCH ×2 (08:04→14:58)
[2017-10-21] MEDS: Magnesium Oxide 400 MG TAB PO SCH ×2 (08:04→20:12)
[2017-10-21] MEDS: Allopurinol 300 MG TAB PO SCH (08:04)
[2017-10-21] MEDS: Atorvastatin Calcium 20 MG TAB PO SCH (08:04)
[2017-10-21] MEDS: Insulin Glargine 30 UNITS in Pre-Filled Syringe 1 EACH SC SCH (08:07)
[2017-10-21] MEDS: HumaLOG 300 UNITS/3 ML VIAL SC SCH ×3 (08:13→17:29)
[2017-10-21] MEDS: Polyethylene Glycol 3350 17 GM Packet PO SCH (08:16)
[2017-10-21] MEDS: Vancomycin HCl 1 GM in Premix Bag 1 BAG IVPB SCH ×2 (08:16→20:13)
--- NOTE | 2017-10-21 08:35 | PDOC.PN ---
- Subjective Encounter Start Date: 10/21/17 Encounter Start Time: 08:34 Subjective: feels weak and tired.SOB easily -: no fever/chills -: c/o not able to urinate but RN reports that he is urinating a lot - Objective Resuscitation Status: Resuscitation Status FULL:Full Resuscitation MAR Reviewed: Yes Vital Signs & Weight: Vital Signs (12 hours) Temp Pulse Resp BP BP Pulse Ox 10/21/17 08:04 77 10/21/17 08:03 74 162/81 H 10/21/17 07:58 98.0 F 74 20 162/81 H 97 10/21/17 05:16 97.9 F 74 16 142/62 H 97 Weight Admit Weight 209 lb Weight 218 lb 12.8 oz I&O: 10/20/17 10/21/17 10/22/17 06:59 06:59 06:59 Intake Total 1860 1810 Output Total 300 Balance 1560 1810 Result Diagrams: 10/19/17 04:36 10/21/17 08:54 Additional Labs: Accuchecks 10/21/17 10/20/17 10/20/17 04:40 20:47 19:55 POC Glucose 170 H 139 H 65 L 10/20/17 10/20/17 16:02 11:25 POC Glucose 111 H 167 H Microbiology 10/16/17 15:50 Urine voided Urine Culture - Final 10/16/17 15:36 Venous blood - Left Arm Blood Culture - Preliminary NO GROWTH AT 48 HOURS 10/16/17 15:28 Venous blood - Right Hand Blood Culture - Preliminary NO GROWTH AT 48 HOURS Laboratory Tests 08/09/17 10/16/17 10/16/17 12:52 15:37 22:11 Calcium 15.6 H* 14.5 H* 13.4 H* Urine Total Volume Urine Calcium Ur Calcium 24 Hr 10/17/17 10/17/17 10/18/17 04:59 09:16 04:35 Calcium 14.0 H* 13.4 H* Urine Total Volume Urine Calcium 9.4 Ur Calcium 24 Hr 10/18/17 10/19/17 10/21/17 06:00 04:36 08:54 Calcium 13.3 H* 14.2 H* Urine Total Volume 3060 H Urine Calcium Ur Calcium 24 Hr 324 H labs reviewed Laboratory Tests 10/17/17 10/17/1710/17/18 04:59 04:59 04:59 25-OH Vitamin D Total 17.3 L Free T4 0.76 TSH 3rd Generation 0.9898 PTH Intact 403.1 H labs reviewed Phys Exam - Physical Examination Constitutional: NAD HEENT: PERRLA, moist MMs, sclera anicteric, oral pharynx no lesions significant swelling/erythema/discoloration R face.matted secretions on jaw Neck: no nodes, no JVD, supple, full ROM Respiratory: no wheezing, no rales, no rhonchi, clear to auscultation bilateral Cardiovascular: RRR, no significant murmur, no rub Gastrointestinal: soft, non-tender, no distention, positive bowel sounds Musculoskeletal: no edema, pulses present Neurological: non-focal, normal sensation, moves all 4 limbs Psychiatric: normal affect, A&O x 3 Skin: no rash Dx/Plan (1) Hypercalcemia Code(s): E83.52 - HYPERCALCEMIA Status: Chronic Comment: Apparently chronic per pt report.Asymptomatic.PTH high ? Hyperparathyroidism (2) Decubitus ulcer of buttock, stage 3 Code(s): L89.303 - PRESSURE ULCER OF UNSPECIFIED BUTTOCK, STAGE 3 Status: Acute Qualifiers: Laterality: left Qualified Code(s): L89.323 - Pressure ulcer of left buttock, stage 3 Comment: WCT for local care, s/p debridement POD #2, pain control .Path c/w necrosis.No Malignant cells (3) Facial cellulitis Code(s): L03.211 - CELLULITIS OF FACE Status: Acute Comment: Suspected, continue Rocephin/Vancomycin and monitor clinically (4) Chronic atrial fibrillation Code(s): I48.2 - CHRONIC ATRIAL FIBRILLATION Status: Chronic Comment: Rate controlled, continue Digoxin and Diltiazem, continue Eliquis (5) Microcytic anemia Code(s): D50.9 - IRON DEFICIENCY ANEMIA, UNSPECIFIED Status: Chronic Comment : Chronic, serial H/H (6) h/o angiosarcoma of face Status: Chronic - Plan plan discussed w/ family, continue antibiotics, PT/OT, out of bed/ambulate, DVT proph w/SCDs discussed high Ca w pt.he has refused Rx & investigations -: discussed the danger of renal failure & need for Rx.pt agrees -: will consult Nephrology.calcitonin on hold since admission -: will also consult Oncology given angiosarcoma of face-? unkn Rx status -: cont Abx for now.empiric. follow Cx * .will consult wound care for facial cyst and buttock wound s/p Sx * OT,PT. * monitor H/H as pt is on Eliquis * check Iron indices-give IV iron if low. * am labs * home meds as below * Review of Systems - Medications/Allergies Allergies/Adverse Reactions: Allergies Allergy/AdvReac Type Severity Reaction Status Date / Time metformin Allergy Verified 10/16/17 18:03 Sulfa (Sulfonamide Allergy Verified 10/17/17 05:12 Antibiotics) Medications: Current Medications Acetaminophen (Tylenol) 650 mg PO Q4H PRN PRN Reason: Headache/Fever or Pain Last Admin: 10/20/17 20:35 Dose: 650 mg Allopurinol (Zyloprim) 300 mg PO DAILY [facility] Last Admin: 10/21/17 08:04 Dose: 300 mg Apixaban (Eliquis) 5 mg PO BID [facility] Last Admin: 10/21/17 08:03 Dose: 5 mg Aspirin (Aspirin Chewable) 81 mg PO DAILY [facility] Last Admin: 10/21/17 08:03 Dose: 81 mg Atorvastatin Calcium (Lipitor) 20 mg PO DAILY [facility] Last Admin: 10/21/17 08:04 Dose: 20 mg Bumetanide (Bumex) 1 mg PO 0900,1400 [facility] Last Admin: 10/21/17 08:04 Dose: 1 mg Calcitonin [place] (Calcimar) 360 units SC DAILY [facility] Citalopram Hydrobromide (Celexa) 20 mg PO DAILY [facility] Last Admin: 10/21/17 08:03 Dose: 20 mg Clobetasol Propionate (Temovate 0.05% Cream) 0 gm TOP BIDPRN PRN PRN Reason: Dry Skin Dextrose/Water (Dextrose 50%) 25 gm SLOW IVP PRN PRN PRN Reason: Hypoglycemia Digoxin (Lanoxin) 0.25 mg PO DAILY [facility] Last Admin: 10/21/17 08:04 Dose: 0.25 mg Diltiazem HCl (Cardizem Cd) 120 mg PO DAILY [facility] Last Admin: 10/21/17 08:03 Dose: 120 mg Fluocinonide (Lidex 0.05% Cream) 0 gm TOP DAILYPRN PRN PRN Reason: Itching Folic Acid (Folvite) 1 mg PO DAILY [facility] Last Admin: 10/21/17 08:03 Dose: 1 mg Gabapentin (Neurontin) 100 mg PO BID [facility] Last Admin: 10/21/17 08:03 Dose: 100 mg Glucagon (Glucagon) 1 mg IM PRN PRN PRN Reason: Hypoglycemia Hydralazine HCl (Apresoline) 10 mg SLOW IVP Q4H PRN PRN Reason: Systolic BP > 180 Dextrose/Water (D5w) 1,000 mls @ 0 mls/hr IV .Q0M PRN PRN Reason: Hypoglycemia Ceftriaxone Sodium 1 gm/ (Sodium Chloride) 100 mls @ 200 mls/hr IVPB Q24HR [facility] Last Admin: 10/21/17 03:50 Dose: 100 mls Vancomycin HCl 1 gm/ Device 200 mls @ 200 mls/hr IVPB Q12HR [facility] Last Admin: 10/21/17 08:16 Dose: 200 mls Insulin Human Lispro (Humalog) 0 units SC .MODERATE SLIDING SC PRN PRN Reason: Moderate Correctional Scale Last Admin: 10/20/17 12:37 Dose: 2 units Insulin Human Lispro (Humalog) 0 units SC .BEDTIME SLIDING SC PRN PRN Reason: Bedtime Correctional Scale Last Admin: 10/18/17 20:59 Dose: 2 unit Insulin Human Lispro (Humalog) 10 units SC TID-WM [facility] Last Admin: 10/21/17 08:13 Dose: 10 unit Ipratropium [place] (Atrovent) 2.5 ml NEB TIDPRN PRN PRN Reason: Wheezing Latanoprost (Xalatan 0.005% Ophth Soln) 1 drop [facility] Last Admin: 10/20/17 20:29 Dose: 1 drop Lorazepam (Ativan) 0.5 mg SLOW IVP Q6H PRN PRN Reason: Anxiety/Agitation Last Admin: 10/20/17 09:15 Dose: 0.5 mg Losartan Potassium (Cozaar) 12.5 mg PO [facility] Last Admin: 10/20/17 20:24 Dose: 12.5 mg Magnesium Oxide (Magnesium Oxide) 400 mg PO BID [facility] Last Admin: 10/21/17 08:04 Dose: 400 mg Ondansetron HCl (Zofran) 4 mg IVP Q6H PRN PRN Reason: Nausea/Vomiting Polyethylene Glycol (Miralax) 17 gm PO DAILY [facility] Last Admin: 10/21/17 08:16 Dose: 17 gm Sodium Chloride (Flush - Normal Saline) 10 ml IVF Q12HR [facility] Last Admin: 10/21/17 08:16 Dose: 10 ml Sodium Chloride (Flush - Normal Saline) 10 ml IVF PRN PRN PRN Reason: Saline Flush
[2017-10-21 09:34] LABS: Anion Gap 7 mmol/L (10-20); BUN (Urea Nitrogen) 14 mg/dL (8.4-25.7); Calc. Creatinine Clearance 87 mL/min (70-130); Carbon Dioxide 36 mmol/L (23-31); Chloride 97 mmol/L (98-107); Estimated GFR-MDRD 70; Glucose 371 mg/dL (83-110); Potassium 4.8 mmol/L (3.5-5.1); Sodium 135 mmol/L (136-145)
[2017-10-21 09:37] LABS: Calcium 14.2 mg/dL (7.8-10.44)
[2017-10-21] MEDS ORDERED: Cinacalcet HCl 30 MG TAB PO SCH (17:15)
[2017-10-21] MEDS ORDERED: Zoledronic Acid 4 MG in Sodium Chloride 0.9% 100 ML IVPB SCH (17:15)
[2017-10-21] MEDS: Sodium Chloride 0.9% 1,000 ML IV SCH (17:34)
--- NOTE | 2017-10-21 18:59 | PRG ---
DATE OF SERVICE: 10/21/2017 SUBJECTIVE: This is a 72-year-old male postop day 2 status post debridement of decubitus ulcer with Dr. Escalante. The patient has been followed by Wound Care. There have been no wound issues. Upon my e valuation, the patient vocalized no complaint. OBJECTIVE: VITAL SIGNS: Temperature 98.0, pulse 74, respiration 20, O2 sat 97% on 2 liters nasal cannula. GENERAL: Elderly appearing male, in no acute distress. PULMONARY: Normal work of breathing. Symmetric rise. CARDIOVASCULAR: Regular rate and rhythm. GASTROINTESTINAL: Abdomen is soft, nontender, nondistended. MUSCULOSKELETAL: Moves all extremities x4. NEUROLOGIC: No focal deficit noted. LABORATORY FINDINGS: Sodium 135, potassium 4.8, chloride 97, carbon dioxide 36, BUN 14, creatinine 1 .04, glucose 250. ASSESSMENT: Left gluteal stage III decubitus ulcer, status post excisional debridement. PLAN: Continue daily wound care as ordered. Surgery will follow remotely. Wound care to call with any concerns. Supportive care and medical management per primary team. The patient was discussed wi Dr. Escalante.
[2017-10-21] MEDS: Losartan 25 MG TAB PO SCH (20:11)
[2017-10-21] MEDS: Acetaminophen 325 MG TAB PO PRN (20:12)
[2017-10-21] MEDS: Latanoprost 0.005% Ophth Soln 2.5 ml Bottle EA EYE SCH (20:12)
--- NOTE | 2017-10-21 23:15 | CON ---
DATE OF CONSULTATION: 10/21/2017 CONSULTING PHYSICIAN: Flora Patterson M.D. REQUESTING PHYSICIAN: Dr. Deleon. REASON FOR CONSULTATION: Hypercalcemia. IMPRESSION: 1. Hypercalcemia, this is related to secondary to problem #2. 2. Primary hyperparathyroidism. 3. Anemia. PLAN: 1. Parathyroid imaging to evaluate for any potential functional adenoma. 2. The patient to be placed on Sensipar. 3. We will start this patient on Zometa and IV fluid with normal saline plus or minus loop diuretic-- anyway the patient is currently on Bumex. 4. The patient does not want to consider any surgical treatment even if imaging studies reveal significant functional parathyroid adenoma. HISTORY OF PRESENT ILLNESS: History is that of 72-year-old gentleman who was brought in here with confusion and some abdominal discomfort and with abnormal labs in aware of severe hypercalcemia. The patient has had history of hypercalcemia for quite some time and invariably has undergone partial parathyroidectomy in the past. As a result of these findings, decision has been taken to involve Renal in the management of this case. PAST MEDICAL HISTORY: Significant for angiosarcoma status post resection and congestive heart failure, type 2 diabetes, reflux disease, dyslipidemia, hypertension, peripheral vascular disease, COPD, and kidney stones. ALLERGIES: METFORMIN and SULFA. SOCIAL HISTORY: The patient is , former smoker. FAMILY HISTORY: Significant for diabetes. REVIEW OF SYSTEMS: As documented in the body of the history. All the other systems were reviewed and found not to be significantly related to presenting illness. MEDICATIONS: Reviewed and as documented on [employer]. PHYSICAL EXAMINATION: GENERAL: The patient was found not to be in any obvious distress and noted with the following vital signs. VITAL SIGNS: Afebrile with temperature 98, pulse 74, respiratory rate of 20, blood pressure 162/81, O2 sat of 97%. HEENT: Unremarkable. CARDIOVASCULAR SYSTEM: First and second heart sounds were heard. RESPIRATORY SYSTEM: Clear to auscultation. DIGESTIVE SYSTEM: Revealed a benign abdomen with positive bowel sounds. EXTREMITIES: No peripheral edema. SKIN: No new gross rash. LYMPHATICS: No peripheral lymphadenopathy. SUMMARY: A 72-year-old gentleman who was brought in here with severely elevated calcium in the context of primary hyperparathyroidism. Thank you for this consultation. We will follow with you. AMANDA
[2017-10-22] MEDS: cefTRIAXone\\ROCEPHIN 1 GM in Sodium Chloride 0.9% 100 ML IVPB SCH (03:19)
[2017-10-22] MEDS: Sodium Chloride 0.9% 1,000 ML IV SCH ×2 (03:22→12:20)
[2017-10-22 05:16] LABS: BUN (Urea Nitrogen) 13 mg/dL (8.4-25.7); Calc. Creatinine Clearance 103 mL/min (70-130); Estimated GFR-MDRD 85; Glucose 176 mg/dL (83-110); Iron 34 ug/dL (65-175); Iron Binding Capacity, Total 178 mcg/dL (261-462)
[2017-10-22 05:23] LABS: Albumin 3.1 g/dL (3.4-4.8); BUN (Urea Nitrogen) 14 mg/dL (8.4-25.7); BUN/Creatinine Ratio 15.38; Calc. Creatinine Clearance 100 mL/min (70-130); Estimated GFR-MDRD 81; Glucose 178 mg/dL (83-110); Iron 35 ug/dL (65-175); Iron Binding Capacity, Total 179 mcg/dL (261-462); Phosphorus 2.3 mg/dL (2.3-4.7)
[2017-10-22 05:26] LABS: Anion Gap 9 mmol/L (10-20); Carbon Dioxide 36 mmol/L (23-31); Chloride 97 mmol/L (98-107); Potassium 4.5 mmol/L (3.5-5.1); Sodium 137 mmol/L (136-145)
[2017-10-22 05:32] LABS: Anion Gap 11 mmol/L (10-20); Carbon Dioxide 33 mmol/L (23-31); Chloride 98 mmol/L (98-107); Potassium 4.6 mmol/L (3.5-5.1); Sodium 137 mmol/L (136-145)
[2017-10-22 08:34] LABS: Vancomycin, Trough 24.9 ug/mL
[2017-10-22] MEDS: Cinacalcet HCl 30 MG TAB PO SCH (09:24)
[2017-10-22] MEDS: Gabapentin 100 MG CAP PO SCH ×2 (09:24→20:27)
[2017-10-22] MEDS: Atorvastatin Calcium 20 MG TAB PO SCH (09:24)
[2017-10-22] MEDS: Citalopram 20 MG TAB PO SCH (09:24)
[2017-10-22] MEDS: Magnesium Oxide 400 MG TAB PO SCH ×2 (09:24→20:28)
[2017-10-22] MEDS: HumaLOG 300 UNITS/3 ML VIAL SC SCH ×3 (09:24→17:00)
[2017-10-22] MEDS: Polyethylene Glycol 3350 17 GM Packet PO SCH (09:24)
[2017-10-22] MEDS: Allopurinol 300 MG TAB PO SCH (09:24)
[2017-10-22] MEDS: Folic Acid 1 MG TAB PO SCH (09:24)
[2017-10-22] MEDS: Digoxin 0.25 MG TAB PO SCH (09:24)
[2017-10-22] MEDS: Apixaban 5 MG TAB PO SCH ×2 (09:25→20:27)
[2017-10-22] MEDS: Bumetanide 1 MG TAB PO SCH ×2 (09:25→15:53)
[2017-10-22] MEDS: Lorazepam 2 MG/ML VIAL SLOW IVP PRN (12:10)
[2017-10-22] MEDS: HumaLOG 300 UNITS/3 ML VIAL SC PRN (12:16)
--- NOTE | 2017-10-22 15:40 | PDOC.PN ---
- Subjective Encounter Start Date: 10/22/17 Encounter Start Time: 15:39 Subjective: reports weakness but otherwise feels better - Objective Resuscitation Status: Resuscitation Status FULL:Full Resuscitation MAR Reviewed: Yes Vital Signs & Weight: Vital Signs (12 hours) Temp Pulse Resp BP BP Pulse Ox 10/22/17 09:24 74 10/22/17 08:00 97.5 F L 74 20 130/66 94 L 10/22/17 04:19 98.1 F 67 18 165/68 H 96 Weight Admit Weight 209 lb Weight 218 lb 12.8 oz I&O: 10/21/17 10/22/17 10/23/17 06:59 06:59 06:59 Intake Total 1810 3284 600 Balance 1810 3284 600 Result Diagrams: 10/19/17 04:36 10/22/17 04:02 Additional Labs: Accuchecks 10/22/17 10/22/17 10/21/17 11:42 04:22 19:51 POC Glucose 190 H 197 H 185 H 10/21/17 16:30 POC Glucose 250 H Microbiology 10/16/17 15:50 Urine voided Urine Culture - Final 10/16/17 15:36 Venous blood - Left Arm Blood Culture - Final NO GROWTH IN 5 DAYS 10/16/17 15:28 Venous blood - Right Hand Blood Culture - Final NO GROWTH IN 5 DAYS Laboratory Tests 10/16/17 10/16/17 10/17/17 15:37 22:11 04:59 Calcium 14.5 H* 13.4 H* 14.0 H* 10/18/17 10/19/17 10/21/17 04:35 04:36 08:54 Calcium 13.4 H* 13.3 H* 14.2 H* 10/22/17 10/22/17 04:02 04:02 Calcium 14.0 H* 14.0 H* labs reviewed Phys Exam - Physical Examination Constitutional: NAD HEENT: PERRLA, moist MMs, sclera anicteric, oral pharynx no lesions facial erythema better Neck: no nodes, no JVD, supple, full ROM Respiratory: no wheezing, no rales, no rhonchi, clear to auscultation bilateral Cardiovascular: RRR, no significant murmur Gastrointestinal: soft, non-tender, no distention, positive bowel sounds Musculoskeletal: no edema, pulses present Neurological: non-focal, normal sensation, moves all 4 limbs Psychiatric: normal affect, A&O x 3 Skin: no rash Dx/Plan (1) Hypercalcemia Code(s): E83.52 - HYPERCALCEMIA Status: Chronic Comment: Apparently chronic per pt report.Asymptomatic.PTH high ? Hyperparathyroidism (2) Decubitus ulcer of buttock, stage 3 Code(s): L89.303 - PRESSURE ULCER OF UNSPECIFIED BUTTOCK, STAGE 3 Status: Acute Qualifiers: Laterality: left Qualified Code(s): L89.323 - Pressure ulcer of left buttock, stage 3 Comment: WCT for local care, s/p debridement POD #2, pain control .Path c/w necrosis.No Malignant cells (3) Facial cellulitis Code(s): L03.211 - CELLULITIS OF FACE Status: Acute Comment: Suspected, continue Rocephin/Vancomycin and monitor clinically.Can be due to angiosarcoma (4) Chronic atrial fibrillation Code(s): I48.2 - CHRONIC ATRIAL FIBRILLATION Status: Chronic Comment: Rate controlled, continue Digoxin and Diltiazem, continue Eliquis (5) Microcytic anemia Code(s): D50.9 - IRON DEFICIENCY ANEMIA, UNSPECIFIED Status: Chronic Comment : Chronic, serial H/H (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 wound cx & blood Cx negative -: Oncology recs requested to establish care -: hemodynamically stable.will arrange HH for DC planning on PO ABx soon -: am labs * . Review of Systems - Review of Systems Constitutional: weakness, malaise. negative: fever, chills, sweats, other ENT: negative: Ear Pain, Ear Discharge, Nose Pain, Nose Discharge, Nose Congestion, Mouth Pain, Mouth Swelling, Throat Pain, Throat Swelling, Other Respiratory: negative: Cough, Dry, Shortness of Breath, Hemoptysis, SOB with Excertion, Pleuritic Pain, Sputum, Wheezing Cardiovascular: negative: chest pain, palpitations, orthopnea, paroxysmal nocturnal dyspnea, edema, light headedness, other Gastrointestinal: negative: Nausea, Vomiting, Abdominal Pain, Diarrhea, Constipation, Melena, Hematochezia, Other Genitourinary: negative: Dysuria, Frequency, Incontinence, Hematuria, Retention , Other Musculoskeletal: negative: Neck Pain, Shoulder Pain, Arm Pain, Back Pain, Hand Pain, Leg Pain, Foot Pain, Other Skin: negative: Rash, Lesions, Jimmy, Bruising, Other Neurological: negative: Weakness, Numbness, Incoordination, Change in Speech, Confusion, Seizures, Other - Medications/Allergies Allergies/Adverse Reactions: Allergies Allergy/AdvReac Type Severity Reaction Status Date / Time metformin Allergy Verified 10/16/17 18:03 Sulfa (Sulfonamide Allergy Verified 10/17/17 05:12 Antibiotics) Medications: Current Medications Acetaminophen (Tylenol) 650 mg PO Q4H PRN PRN Reason: Headache/Fever or Pain Last Admin: 10/21/17 20:12 Dose: 650 mg Allopurinol (Zyloprim) 300 mg PO DAILY [facility] Last Admin: 10/22/17 09:24 Dose: 300 mg Apixaban (Eliquis) 5 mg PO BID [facility] Last Admin: 10/22/17 09:25 Dose: 5 mg Aspirin (Aspirin Chewable) 81 mg PO DAILY [facility] Last Admin: 10/22/17 09:24 Dose: 81 mg Atorvastatin Calcium (Lipitor) 20 mg PO DAILY [facility] Last Admin: 10/22/17 09:24 Dose: 20 mg Bumetanide (Bumex) 1 mg PO 0900,1400 [facility] Last Admin: 10/22/17 09:25 Dose: 1 mg Calcitonin [place] (Calcimar) 360 units SC DAILY [facility] Cinacalcet (Sensipar) 30 mg PO QAM-WM [facility] Last Admin: 10/22/17 09:24 Dose: 30 mg Citalopram Hydrobromide (Celexa) 20 mg PO DAILY [facility] Last Admin: 10/22/17 09:24 Dose: 20 mg Clobetasol Propionate (Temovate 0.05% Cream) 0 gm TOP BIDPRN PRN PRN Reason: Dry Skin Dextrose/Water (Dextrose 50%) 25 gm SLOW IVP PRN PRN PRN Reason: Hypoglycemia Digoxin (Lanoxin) 0.25 mg PO DAILY [facility] Last Admin: 10/22/17 09:24 Dose: 0.25 mg Diltiazem HCl (Cardizem Cd) 120 mg PO DAILY [facility] Last Admin: 10/22/17 09:24 Dose: 120 mg Fluocinonide (Lidex 0.05% Cream) 0 gm TOP DAILYPRN PRN PRN Reason: Itching Folic Acid (Folvite) 1 mg PO DAILY [facility] Last Admin: 10/22/17 09:24 Dose: 1 mg Gabapentin (Neurontin) 100 mg PO BID [facility] Last Admin: 10/22/17 09:24 Dose: 100 mg Glucagon (Glucagon) 1 mg IM PRN PRN PRN Reason: Hypoglycemia Hydralazine HCl (Apresoline) 10 mg SLOW IVP Q4H PRN PRN Reason: Systolic BP > 180 Dextrose/Water (D5w) 1,000 mls @ 0 mls/hr IV .Q0M PRN PRN Reason: Hypoglycemia Ceftriaxone Sodium 1 gm/ (Sodium Chloride) 100 mls @ 200 mls/hr IVPB Q24HR [facility] Last Admin: 10/22/17 03:19 Dose: 100 mls Sodium Chloride (Normal Saline 0.9%) 1,000 mls @ 100 mls/hr IV .Q10H [facility] Last Admin: 10/22/17 12:20 Dose: 1,000 mls Vancomycin HCl 1.5 gm/ Sodium (Chloride) 300 mls @ 200 mls/hr IVPB Q24HR@2100 [facility] Insulin Human Lispro (Humalog) 0 units SC .MODERATE SLIDING SC PRN PRN Reason: Moderate Correctional Scale Last Admin: 10/22/17 12:16 Dose: 2 units Insulin Human Lispro (Humalog) 0 units SC .BEDTIME SLIDING SC PRN PRN Reason: Bedtime Correctional Scale Last Admin: 10/18/17 20:59 Dose: 2 unit Insulin Human Lispro (Humalog) 10 units SC TID-WM [facility] Last Admin: 10/22/17 12:16 Dose: 10 unit Ipratropium [place] (Atrovent) 2.5 ml NEB TIDPRN PRN PRN Reason: Wheezing Latanoprost (Xalatan 0.005% Ophth Soln) 1 drop EA [facility] Last Admin: 10/21/17 20:12 Dose: 1 drop Lorazepam (Ativan) 0.5 mg SLOW IVP Q6H PRN PRN Reason: Anxiety/Agitation Last Admin: 10/22/17 12:10 Dose: 0.5 mg Losartan Potassium (Cozaar) 12.5 mg PO [facility] Last Admin: 10/21/17 20:11 Dose: 12.5 mg Magnesium Oxide (Magnesium Oxide) 400 mg PO BID [facility] Last Admin: 10/22/17 09:24 Dose: 400 mg Ondansetron HCl (Zofran) 4 mg IVP Q6H PRN PRN Reason: Nausea/Vomiting Last Admin: 10/22/17 12:10 Dose: 4 mg Polyethylene Glycol (Miralax) 17 gm PO DAILY [facility] Last Admin: 10/22/17 09:24 Dose: 17 gm Sodium Chloride (Flush - Normal Saline) 10 ml IVF Q12HR [facility] Last Admin: 10/22/17 09:25 Dose: Not Given Sodium Chloride (Flush - Normal Saline) 10 ml IVF PRN PRN PRN Reason: Saline Flush
--- NOTE | 2017-10-22 19:28 | PRG ---
DATE OF SERVICE: 10/22/2017 SUBJECTIVE: The patient was seen and examined with no new complaint noted with the following. PHYSICAL EXAMINATION: VITAL SIGNS: Afebrile, temperature 97.5, pulse 74, respiratory rate 20, blood pressure 130/66. HEENT: Unremarkable. CARDIOVASCULAR SYSTEM: First and second heart sounds were heard. RESPIRATORY SYSTEM: Clear to auscultation. DIGESTIVE SYSTEM: Revealed a benign abdomen with positive bowel sounds. EXTREMITIES: No peripheral edema. SKIN: No new gross rash. LYMPHATICS: No peripheral lymphadenopathy. LABORATORY INVESTIGATIONS: Showed a calcium . IMPRESSION: 1. Severe hypercalcemia in the context of problem #2. 2. Primary hyperparathyroidism. PLAN: 1. We will continue with current management of the hypercalcemia. We will likely consider IV loop d iuretic, especially the patient begins to show evidence of shortness of breath, fluid overload and di scontinue the oral Bumex. 2. Further management to be dependent on the clinical course.
[2017-10-22] MEDS: Losartan 25 MG TAB PO SCH (20:27)
[2017-10-22] MEDS: Vancomycin HCl 1.5 GM in Sodium Chloride 0.9% 250 ML 300 ML IVPB SCH (20:27)
[2017-10-22] MEDS: Latanoprost 0.005% Ophth Soln 2.5 ml Bottle EA EYE SCH (20:28)
[2017-10-23] MEDS: Sodium Chloride 0.9% 1,000 ML IV SCH ×3 (00:29→20:16)
[2017-10-23] MEDS: cefTRIAXone\\ROCEPHIN 1 GM in Sodium Chloride 0.9% 100 ML IVPB SCH (04:18)
[2017-10-23 05:47] LABS: BUN (Urea Nitrogen) 16 mg/dL (8.4-25.7); Calc. Creatinine Clearance 108 mL/min (70-130); Estimated GFR-MDRD 89; Glucose 110 mg/dL (83-110)
[2017-10-23 05:52] LABS: Calcium 13.1 mg/dL (7.8-10.44)
[2017-10-23 05:56] LABS: Anion Gap 9 mmol/L (10-20); Carbon Dioxide 34 mmol/L (23-31); Chloride 101 mmol/L (98-107); Potassium 4.6 mmol/L (3.5-5.1); Sodium 139 mmol/L (136-145)
[2017-10-23] MEDS: Gabapentin 100 MG CAP PO SCH ×2 (08:23→20:17)
[2017-10-23] MEDS: Folic Acid 1 MG TAB PO SCH (08:23)
[2017-10-23] MEDS: Citalopram 20 MG TAB PO SCH (08:23)
[2017-10-23] MEDS: Bumetanide 1 MG TAB PO SCH ×2 (08:23→15:05)
[2017-10-23] MEDS: Magnesium Oxide 400 MG TAB PO SCH ×2 (08:23→20:17)
[2017-10-23] MEDS: Apixaban 5 MG TAB PO SCH ×2 (08:23→20:16)
[2017-10-23] MEDS: Atorvastatin Calcium 20 MG TAB PO SCH (08:23)
[2017-10-23] MEDS: Allopurinol 300 MG TAB PO SCH (08:23)
[2017-10-23] MEDS: Cinacalcet HCl 30 MG TAB PO SCH (08:23)
[2017-10-23] MEDS: Polyethylene Glycol 3350 17 GM Packet PO SCH (08:24)
[2017-10-23] MEDS: Digoxin 0.25 MG TAB PO SCH (08:45)
[2017-10-23] MEDS: HumaLOG 300 UNITS/3 ML VIAL SC SCH ×3 (08:47→18:18)
--- NOTE | 2017-10-23 13:51 | CON ---
DATE OF CONSULTATION: 10/22/2017 REASON FOR CONSULTATION: Angiosarcoma of the right cheek. HISTORY OF PRESENT ILLNESS: This is a 72-year-old gentleman who was diagnosed angiosarcoma and has b een receiving treatment at [facility]. It appears that he had resection and grafting. He was a resident of [facility]. When I saw the patient, he was given Ativan and w as asleep and was difficult to be aroused and there was no family member in the room. The history wa s obtained by reviewing his records and talking to the nurse taking care of the patient. The patient is confined to bed and has been quite confused. He does not have any out of bed activity. He had b edsores, had surgery recently for that by Dr. Escalante. The patient has been hypercalcemic. Hypercalce valentine is believed to be on the basis of hyperparathyroidism and the patient has refused surgical approa ch. PAST MEDICAL HISTORY: Positive for congestive cardiac failure, diabetes, hypertension, advanced COPD , kidney stones and CVAs. PAST SURGICAL HISTORY: Include cholecystectomy, resection and skin grafting of the cheek tumor. DRUGS WITH ADVERSE EFFECT: SULFA AND METFORMIN. SOCIAL HISTORY: Patient lives with his . Currently in [facility]dc. He used to smoke in the [facility] and does not drink. OUTPATIENT MEDICATIONS: Include Eliquis, Lipitor, Bumex, citalopram Temovate, digoxin, diltiazem, fl uocinonide, folic acid, gabapentin, Lantus insulin, lisinopril, Atrovent, losartan and Bactroban. PHYSICAL EXAMINATION: GENERAL: The patient appears older than his stated age and deconditioned. VITAL SIGNS: Temperature 97.8, pulse 70, blood pressure 150/68, respirations 18. . SKIN: There was no obvious lymphadenopathy. On the right cheek, there is evidence of recent reconst ruction and skin grafting. There is a bluish nodule in the lower anterior part of the right cheek. No gross lymphadenopathy. CHEST: Vesicular breath sounds. HEART: Regular rhythm. S1 and S2. ABDOMEN: Protuberant. No definite tenderness. Bowel sounds present. EXTREMITIES: Bipedal edema. LABORATORY DATA: WBC is 6700, hemoglobin 9, platelets 175,000. Differential showed 51% neutrophils and 8% bands. Chemistry profile shows a creatinine of 0.91, BUN 14, calcium 14 on 10/22/2017 but 13. 1 on 10/23/2017. ASSESSMENT AND RECOMMENDATIONS: This patient had angiosarcoma of the right cheek. He might have rec urrent disease around the area of skin graft. The patient is bed confined and confused. He is also hypercalcemic. I do not think he is a candidate for treatment directed towards his malignancy. Ther e needs to be a discussion with the patient and the family about end of life care. I do not think he can go back to [facility] and is unlikely to benefit from treatment directed towards his malignancy. Thanks very much for allowing me to participate in this patient's care.
[2017-10-23] MEDS: Lorazepam 2 MG/ML VIAL SLOW IVP PRN (14:58)
--- NOTE | 2017-10-23 15:03 | PDOC.PN ---
- Subjective Encounter Start Date: 10/23/17 Encounter Start Time: 15:02 Subjective: once again ,doesnot want any Rx for high calcium. -: c/o extreme weakness.confused - Objective Resuscitation Status: Resuscitation Status FULL:Full Resuscitation MAR Reviewed: Yes Vital Signs & Weight: Vital Signs (12 hours) Temp Pulse Resp BP BP Pulse Ox 10/23/17 08:45 70 10/23/17 08:24 60 151/72 H 10/23/17 08:00 98.0 F 70 20 95 10/23/17 07:20 98.0 F 60 20 151/72 H 95 Weight Admit Weight 209 lb Weight 218 lb 12.8 oz I&O: 10/22/17 10/23/17 10/24/17 06:59 06:59 06:59 Intake Total 3284 2390 Output Total 350 Balance 3284 2040 Result Diagrams: 10/19/17 04:36 10/23/17 04:46 Additional Labs: Accuchecks 10/23/17 10/23/17 10/22/17 11:17 05:12 20:19 POC Glucose 201 H 111 H 170 H 10/22/17 16:31 POC Glucose 107 Microbiology 10/16/17 15:50 Urine voided Urine Culture - Final 10/16/17 15:36 Venous blood - Left Arm Blood Culture - Final NO GROWTH IN 5 DAYS 10/16/17 15:28 Venous blood - Right Hand Blood Culture - Final NO GROWTH IN 5 DAYS Laboratory Tests 10/16/17 10/16/17 10/17/17 15:37 22:11 04:59 Calcium 14.5 H* 13.4 H* 14.0 H* 10/18/17 10/19/17 10/21/17 04:35 04:36 08:54 Calcium 13.4 H* 13.3 H* 14.2 H* 10/22/17 10/22/17 10/23/17 04:02 04:02 04:46 Calcium 14.0 H* 14.0 H* 13.1 H* labs reviewed Phys Exam - Physical Examination Constitutional: NAD HEENT: PERRLA, moist MMs, sclera anicteric, oral pharynx no lesions Neck: no nodes, no JVD, supple, full ROM Respiratory: no wheezing, no rales, no rhonchi, clear to auscultation bilateral Cardiovascular: RRR, no significant murmur, no rub Gastrointestinal: soft, non-tender, no distention, positive bowel sounds Musculoskeletal: no edema, pulses present Neurological: non-focal, normal sensation, moves all 4 limbs Psychiatric: normal affect, A&O x 3 Skin: no rash Dx/Plan (1) Hypercalcemia Code(s): E83.52 - HYPERCALCEMIA Status: Chronic Comment: Apparently chronic per pt report.Asymptomatic.PTH high ,likley Hyperparathyroidism (2) Decubitus ulcer of buttock, stage 3 Code(s): L89.303 - PRESSURE ULCER OF UNSPECIFIED BUTTOCK, STAGE 3 Status: Acute Qualifiers: Laterality: left Qualified Code(s): L89.323 - Pressure ulcer of left buttock, stage 3 Comment: WCT for local care, s/p debridement POD #2, pain control .Path c/w necrosis.No Malignant cells (3) Facial cellulitis Code(s): L03.211 - CELLULITIS OF FACE Status: Acute Comment: Suspected, continue Rocephin/Vancomycin and monitor clinically.Can be due to angiosarcoma (4) Chronic atrial fibrillation Code(s): I48.2 - CHRONIC ATRIAL FIBRILLATION Status: Chronic Comment: Rate controlled, continue Digoxin and Diltiazem, continue Eliquis (5) Microcytic anemia Code(s): D50.9 - IRON DEFICIENCY ANEMIA, UNSPECIFIED Status: Chronic Comment : Chronic, serial H/H (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 -: clnically better & no new intervention planned.OK to DC to rehab -: refuses Rx for hyperparathyroidism or imaging.cont IVF for High Ca -: no recs from Oncology.end of life care discussuion but pt refused -: empiric ABx. wound care * .CM trying to arrange transfer to [place] rehab .DC when arranged Review of Systems - Review of Systems Other: cannot be reilably obtained due to confusion - Medications/Allergies Allergies/Adverse Reactions: Allergies Allergy/AdvReac Type Severity Reaction Status Date / Time metformin Allergy Verified 10/16/17 18:03 Sulfa (Sulfonamide Allergy Verified 10/17/17 05:12 Antibiotics) Medications: Current Medications Acetaminophen (Tylenol) 650 mg PO Q4H PRN PRN Reason: Headache/Fever or Pain Last Admin: 10/21/17 20:12 Dose: 650 mg Allopurinol (Zyloprim) 300 mg PO DAILY [facility] Last Admin: 10/23/17 08:23 Dose: 300 mg Apixaban (Eliquis) 5 mg PO BID [facility] Last Admin: 10/23/17 08:23 Dose: 5 mg Aspirin (Aspirin Chewable) 81 mg PO DAILY [facility] Last Admin: 10/23/17 08:23 Dose: 81 mg Atorvastatin Calcium (Lipitor) 20 mg PO DAILY [facility] Last Admin: 10/23/17 08:23 Dose: 20 mg Bumetanide (Bumex) 1 mg PO 0900,1400 [facility] Last Admin: 10/23/17 08:23 Dose: 1 mg Calcitonin [place] (Calcimar) 360 units SC DAILY [facility] Cinacalcet (Sensipar) 30 mg PO QA[facility] Last Admin: 10/23/17 08:23 Dose: 30 mg Citalopram Hydrobromide (Celexa) 20 mg PO DAILY [facility] Last Admin: 10/23/17 08:23 Dose: 20 mg Clobetasol Propionate (Temovate 0.05% Cream) 0 gm TOP BIDPRN PRN PRN Reason: Dry Skin Dextrose/Water (Dextrose 50%) 25 gm SLOW IVP PRN PRN PRN Reason: Hypoglycemia Digoxin (Lanoxin) 0.25 mg PO DAILY [facility] Last Admin: 10/23/17 08:45 Dose: 0.25 mg Diltiazem HCl (Cardizem Cd) 120 mg PO DAILY [facility] Last Admin: 10/23/17 08:24 Dose: 120 mg Fluocinonide (Lidex 0.05% Cream) 0 gm TOP DAILYPRN PRN PRN Reason: Itching Folic Acid (Folvite) 1 mg PO DAILY [facility] Last Admin: 10/23/17 08:23 Dose: 1 mg Gabapentin (Neurontin) 100 mg PO BID [facility] Last Admin: 10/23/17 08:23 Dose: 100 mg Glucagon (Glucagon) 1 mg IM PRN PRN PRN Reason: Hypoglycemia Hydralazine HCl (Apresoline) 10 mg SLOW IVP Q4H PRN PRN Reason: Systolic BP > 180 Dextrose/Water (D5w) 1,000 mls @ 0 mls/hr IV .Q0M PRN PRN Reason: Hypoglycemia Ceftriaxone Sodium 1 gm/ (Sodium Chloride) 100 mls @ 200 mls/hr IVPB Q24HR [facility] Last Admin: 10/23/17 04:18 Dose: 100 mls Sodium Chloride (Normal Saline 0.9%) 1,000 mls @ 100 mls/hr IV .Q10H [facility] Last Admin: 10/23/17 00:29 Dose: 1,000 mls Vancomycin HCl 1.5 gm/ Sodium (Chloride) 300 mls @ 200 mls/hr IVPB Q24HR@2100 [facility] Last Admin: 10/22/17 20:27 Dose: 300 mls Insulin Human Lispro (Humalog) 0 units SC .MODERATE SLIDING SC PRN PRN Reason: Moderate Correctional Scale Last Admin: 10/22/17 12:16 Dose: 2 units Insulin Human Lispro (Humalog) 0 units SC .BEDTIME SLIDING SC PRN PRN Reason: Bedtime Correctional Scale Last Admin: 10/18/17 20:59 Dose: 2 unit Insulin Human Lispro (Humalog) 10 units SC TID-WM [facility] Last Admin: 10/23/17 12:28 Dose: 10 unit Ipratropium [place] (Atrovent) 2.5 ml NEB TIDPRN PRN PRN Reason: Wheezing Latanoprost (Xalatan 0.005% Ophth Soln) 1 drop EA [facility] Last Admin: 10/22/17 20:28 Dose: 1 drop Lorazepam (Ativan) 0.5 mg SLOW IVP Q6H PRN PRN Reason: Anxiety/Agitation Last Admin: 10/22/17 12:10 Dose: 0.5 mg Losartan Potassium (Cozaar) 12.5 mg PO HS [facility] Last Admin: 10/22/17 20:27 Dose: 12.5 mg Magnesium Oxide (Magnesium Oxide) 400 mg PO BID [facility] Last Admin: 10/23/17 08:23 Dose: 400 mg Ondansetron HCl (Zofran) 4 mg IVP Q6H PRN PRN Reason: Nausea/Vomiting Last Admin: 10/22/17 12:10 Dose: 4 mg Polyethylene Glycol (Miralax) 17 gm PO DAILY [facility] Last Admin: 10/23/17 08:24 Dose: 17 gm Sodium Chloride (Flush - Normal Saline) 10 ml IVF Q12HR [facility] Last Admin: 10/23/17 08:25 Dose: Not Given Sodium Chloride (Flush - Normal Saline) 10 ml IVF PRN PRN PRN Reason: Saline Flush
--- NOTE | 2017-10-23 19:54 | PRG ---
DATE OF SERVICE: 10/23/2017 SUBJECTIVE: The patient was seen and examined, noted with the following vital signs. OBJECTIVE: VITAL SIGNS: Afebrile with temperature 98, pulse 70, respiratory rate 20, O2 sat 95%, blood pressure . HEENT: Unremarkable. CARDIOVASCULAR: First and second heart sounds heard. RESPIRATORY: Clear to auscultation. DIGESTIVE: Revealed a benign abdomen with positive bowel sounds. EXTREMITIES: No peripheral edema. SKIN: No new gross rash. LYMPHATICS: No peripheral lymphadenopathy. LABORATORY INVESTIGATIONS: Showed a creatinine down to 13.1. IMPRESSION: 1. Severe hypercalcemia in the context of hyperparathyroidism. 2. Hyperparathyroidism. PLAN: 1. We will continue with current regimen to address the hypercalcemia. 2. Further management to be dependent on the clinical course.
[2017-10-23] MEDS: Losartan 25 MG TAB PO SCH (20:16)
[2017-10-23] MEDS: Vancomycin HCl 1.5 GM in Sodium Chloride 0.9% 250 ML 300 ML IVPB SCH (20:16)
[2017-10-23] MEDS: Latanoprost 0.005% Ophth Soln 2.5 ml Bottle EA EYE SCH (20:17)
[2017-10-24] MEDS: cefTRIAXone\\ROCEPHIN 1 GM in Sodium Chloride 0.9% 100 ML IVPB SCH (04:37)
[2017-10-24] MEDS: Sodium Chloride 0.9% 1,000 ML IV SCH ×2 (04:39→16:56)
[2017-10-24 05:03] LABS: Anion Gap 8 mmol/L (10-20); BUN (Urea Nitrogen) 20 mg/dL (8.4-25.7); Calc. Creatinine Clearance 101 mL/min (70-130); Carbon Dioxide 36 mmol/L (23-31); Chloride 97 mmol/L (98-107); Estimated GFR-MDRD 82; Glucose 147 mg/dL (83-110); Potassium 4.4 mmol/L (3.5-5.1); Sodium 137 mmol/L (136-145)
[2017-10-24 05:16] LABS: Calcium 12.3 mg/dL (7.8-10.44)
[2017-10-24] MEDS: Magnesium Oxide 400 MG TAB PO SCH ×2 (08:37→20:46)
[2017-10-24] MEDS: Digoxin 0.25 MG TAB PO SCH (08:37)
[2017-10-24] MEDS: Polyethylene Glycol 3350 17 GM Packet PO SCH (08:37)
[2017-10-24] MEDS: Bumetanide 1 MG TAB PO SCH (08:37)
[2017-10-24] MEDS: Allopurinol 300 MG TAB PO SCH (08:38)
[2017-10-24] MEDS: Folic Acid 1 MG TAB PO SCH (08:38)
[2017-10-24] MEDS: Citalopram 20 MG TAB PO SCH (08:38)
[2017-10-24] MEDS: Apixaban 5 MG TAB PO SCH ×2 (08:38→20:45)
[2017-10-24] MEDS: Atorvastatin Calcium 20 MG TAB PO SCH (08:38)
[2017-10-24] MEDS: Gabapentin 100 MG CAP PO SCH ×2 (08:38→20:46)
[2017-10-24] MEDS: Cinacalcet HCl 30 MG TAB PO SCH (08:38)
[2017-10-24] MEDS: HumaLOG 300 UNITS/3 ML VIAL SC SCH ×3 (08:39→16:55)
[2017-10-24] MEDS: Furosemide 40 MG/4 ML VIAL SLOW IVP SCH (14:23)
--- NOTE | 2017-10-24 14:50 | CT ---
NONCONTRAST HEAD CT: COMPARISON: 10/16/17. CORRELATION: Face CT 10/16/17. HISTORY: Fall. The patient is on Eliquis. TECHNIQUE: Noncontrast head CT is performed from the skull base to the skull vertex. FINDINGS: No parenchymal hemorrhage. No extraaxial hematoma. No midline shift. Basilar cisterns are patent. Age-appropriate atrophy. Cortical marcano-white matter differentiation is preserved. Ventricles and sulci are patent and symmetric. Adequate aeration of the sinuses and mastoid air cells. The calvarium is intact. Stable postsurgical changes involving the right scalp and right facial soft tissues. IMPRESSION: No intracranial posttraumatic sequelae. POS: [facility]
--- NOTE | 2017-10-24 15:28 | PDOC.PN ---
- Subjective Encounter Start Date: 10/24/17 Encounter Start Time: 15:26 Subjective: pt fell while transfering .Brain CT negative for hemorrhage/hematoma -: no other ac events. agreeable to go to Rehab - Objective Resuscitation Status: Resuscitation Status FULL:Full Resuscitation MAR Reviewed: Yes Vital Signs & Weight: Vital Signs (12 hours) Temp Pulse Resp BP Pulse Ox 10/24/17 12:00 93 L 10/24/17 11:16 98.7 F 66 20 138/67 91 L 10/24/17 08:38 75 10/24/17 08:37 75 10/24/17 08:00 98.9 F 75 18 90 L 10/24/17 07:07 98.9 F 75 18 150/58 H 90 L Weight Admit Weight 209 lb Weight 218 lb 12.8 oz I&O: 10/23/17 10/24/17 10/25/17 06:59 06:59 06:59 Intake Total 2390 3709 240 Output Total 350 Balance 2040 3709 240 Result Diagrams: 10/19/17 04:36 10/24/17 04:13 Additional Labs: Accuchecks 10/24/17 10/24/17 10/23/17 10:59 04:58 19:40 POC Glucose 160 H 164 H 174 H 10/23/17 16:14 POC Glucose 154 H Laboratory Tests 10/16/17 10/17/17 10/19/17 15:37 04:59 04:36 Calcium 14.5 H* 14.0 H* 13.3 H* 10/22/17 10/23/17 10/24/17 04:02 04:46 04:13 Calcium 14.0 H* 13.1 H* 12.3 H* Phys Exam - Physical Examination Constitutional: NAD HEENT: PERRLA, moist MMs, sclera anicteric, oral pharynx no lesions facial angiosarcoma w graft Neck: no nodes, no JVD, supple, full ROM Respiratory: no wheezing, no rales, no rhonchi, clear to auscultation bilateral Cardiovascular: RRR, no significant murmur Gastrointestinal: soft, non-tender, no distention, positive bowel sounds Musculoskeletal: pulses present, edema present Neurological: non-focal, normal sensation, moves all 4 limbs Psychiatric: normal affect, A&O x 3 Dx/Plan (1) Hypercalcemia Code(s): E83.52 - HYPERCALCEMIA Status: Chronic Comment: Apparently chronic per pt report.Asymptomatic.PTH high ,likley Hyperparathyroidism.refuses further work up (2) Decubitus ulcer of buttock, stage 3 Code(s): L89.303 - PRESSURE ULCER OF UNSPECIFIED BUTTOCK, STAGE 3 Status: Acute Qualifiers: Laterality: left Qualified Code(s): L89.323 - Pressure ulcer of left buttock, stage 3 Comment: WCT for local care, s/p debridement POD #2, pain control .Path c/w necrosis.No Malignant cells (3) Facial cellulitis Code(s): L03.211 - CELLULITIS OF FACE Status: Acute Comment: Suspected, continue Rocephin/Vancomycin and monitor clinically.Can be due to angiosarcoma (4) Chronic atrial fibrillation Code(s): I48.2 - CHRONIC ATRIAL FIBRILLATION Status: Chronic Comment: Rate controlled, continue Digoxin and Diltiazem, continue Eliquis (5) Microcytic anemia Code(s): D50.9 - IRON DEFICIENCY ANEMIA, UNSPECIFIED Status: Chronic Comment : Chronic, serial H/H (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 on eliquis for h/o a-fib -: Cont IVF.ca levels better.nephro following -: supportive care -: D/W Oncology Dr allison-no further Rx avialable. -: DC to rehab/SNIF/[facility] when arranged * . Review of Systems - Review of Systems Constitutional: weakness, malaise. negative: fever, chills, sweats, other ENT: negative: Ear Pain, Ear Discharge, Nose Pain, Nose Discharge, Nose Congestion, Mouth Pain, Mouth Swelling, Throat Pain, Throat Swelling, Other Respiratory: negative: Cough, Dry, Shortness of Breath, Hemoptysis, SOB with Excertion, Pleuritic Pain, Sputum, Wheezing Cardiovascular: negative: chest pain, palpitations, orthopnea, paroxysmal nocturnal dyspnea, edema, light headedness, other Gastrointestinal: negative: Nausea, Vomiting, Abdominal Pain, Diarrhea, Constipation, Melena, Hematochezia, Other Genitourinary: negative: Dysuria, Frequency, Incontinence, Hematuria, Retention , Other Musculoskeletal: Back Pain. negative: Neck Pain, Shoulder Pain, Arm Pain, Hand Pain, Leg Pain, Foot Pain, Other Neurological: negative: Weakness, Numbness, Incoordination, Change in Speech, Confusion, Seizures, Other - Medications/Allergies Allergies/Adverse Reactions: Allergies Allergy/AdvReac Type Severity Reaction Status Date / Time metformin Allergy Verified 10/16/17 18:03 Sulfa (Sulfonamide Allergy Verified 10/17/17 05:12 Antibiotics) Medications: Current Medications Acetaminophen (Tylenol) 650 mg PO Q4H PRN PRN Reason: Headache/Fever or Pain Last Admin: 10/21/17 20:12 Dose: 650 mg Allopurinol (Zyloprim) 300 mg PO DAILY [facility] Last Admin: 10/24/17 08:38 Dose: 300 mg Apixaban (Eliquis) 5 mg PO BID [facility] Last Admin: 10/24/17 08:38 Dose: 5 mg Aspirin (Aspirin Chewable) 81 mg PO DAILY [facility] Last Admin: 10/24/17 08:38 Dose: 81 mg Atorvastatin Calcium (Lipitor) 20 mg PO DAILY [facility] Last Admin: 10/24/17 08:38 Dose: 20 mg Calcitonin [place] (Calcimar) 360 units SC DAILY [facility] Cinacalcet (Sensipar) 30 mg PO QAM-[facility] [place] Last Admin: 10/24/17 08:38 Dose: 30 mg Citalopram Hydrobromide (Celexa) 20 mg PO DAILY [facility] Last Admin: 10/24/17 08:38 Dose: 20 mg Clobetasol Propionate (Temovate 0.05% Cream) 0 gm TOP BIDPRN PRN PRN Reason: Dry Skin Dextrose/Water (Dextrose 50%) 25 gm SLOW IVP PRN PRN PRN Reason: Hypoglycemia Digoxin (Lanoxin) 0.25 mg PO DAILY [facility] Last Admin: 10/24/17 08:37 Dose: 0.25 mg Diltiazem HCl (Cardizem Cd) 120 mg PO DAILY [facility] Last Admin: 10/24/17 08:38 Dose: 120 mg Fluocinonide (Lidex 0.05% Cream) 0 gm TOP DAILYPRN PRN PRN Reason: Itching Folic Acid (Folvite) 1 mg PO DAILY [facility] Last Admin: 10/24/17 08:38 Dose: 1 mg Furosemide (Lasix) 40 mg SLOW IVP 0600,1400 [facility] Last Admin: 10/24/17 14:23 Dose: 40 mg Gabapentin (Neurontin) 100 mg PO BID [facility] Last Admin: 10/24/17 08:38 Dose: 100 mg Glucagon (Glucagon) 1 mg IM PRN PRN PRN Reason: Hypoglycemia Hydralazine HCl (Apresoline) 10 mg SLOW IVP Q4H PRN PRN Reason: Systolic BP > 180 Dextrose/Water (D5w) 1,000 mls @ 0 mls/hr IV .Q0M PRN PRN Reason: Hypoglycemia Ceftriaxone Sodium 1 gm/ (Sodium Chloride) 100 mls @ 200 mls/hr IVPB Q24HR [facility] Last Admin: 10/24/17 04:37 Dose: 100 mls Sodium Chloride (Normal Saline 0.9%) 1,000 mls @ 100 mls/hr IV .Q10H [facility] Last Admin: 10/24/17 04:39 Dose: 1,000 mls Vancomycin HCl 1.5 gm/ Sodium (Chloride) 300 mls @ 200 mls/hr IVPB Q24HR@2100 [facility] Last Admin: 10/23/17 20:16 Dose: 300 mls Insulin Human Lispro (Humalog) 0 units SC .MODERATE SLIDING SC PRN PRN Reason: Moderate Correctional Scale Last Admin: 10/22/17 12:16 Dose: 2 units Insulin Human Lispro (Humalog) 0 units SC .BEDTIME SLIDING SC PRN PRN Reason: Bedtime Correctional Scale Last Admin: 10/18/17 20:59 Dose: 2 unit Insulin Human Lispro (Humalog) 10 units SC TID-WM [facility] Last Admin: 10/24/17 13:31 Dose: Not Given Ipratropium [place] (Atrovent) 2.5 ml NEB TIDPRN PRN PRN Reason: Wheezing Latanoprost (Xalatan 0.005% Ophth Soln) 1 drop EA [facility] Last Admin: 10/23/17 20:17 Dose: 1 drop Lorazepam (Ativan) 0.5 mg SLOW IVP Q6H PRN PRN Reason: Anxiety/Agitation Last Admin: 10/23/17 14:58 Dose: 0.5 mg Losartan Potassium (Cozaar) 12.5 mg PO [facility] Last Admin: 10/23/17 20:16 Dose: 12.5 mg Magnesium Oxide (Magnesium Oxide) 400 mg PO BID [facility] Last Admin: 10/24/17 08:37 Dose: 400 mg Ondansetron HCl (Zofran) 4 mg IVP Q6H PRN PRN Reason: Nausea/Vomiting Last Admin: 10/22/17 12:10 Dose: 4 mg Polyethylene Glycol (Miralax) 17 gm PO DAILY [facility] Last Admin: 10/24/17 08:37 Dose: 17 gm Sodium Chloride (Flush - Normal Saline) 10 ml IVF Q12HR [facility] Last Admin: 10/24/17 08:42 Dose: 10 ml Sodium Chloride (Flush - Normal Saline) 10 ml IVF PRN PRN PRN Reason: Saline Flush
[2017-10-24 20:44] LABS: Vancomycin, Trough 18.3 ug/mL
[2017-10-24] MEDS: Losartan 25 MG TAB PO SCH (20:45)
[2017-10-24] MEDS: Acetaminophen 325 MG TAB PO PRN (20:46)
[2017-10-24] MEDS: Latanoprost 0.005% Ophth Soln 2.5 ml Bottle EA EYE SCH (20:47)
[2017-10-24] MEDS: Vancomycin HCl 1.5 GM in Sodium Chloride 0.9% 250 ML 300 ML IVPB SCH (20:47)
[2017-10-24] MEDS: HumaLOG 300 UNITS/3 ML VIAL SC PRN (20:54)
[2017-10-25] MEDS: Sodium Chloride 0.9% 1,000 ML IV SCH ×2 (01:51→13:28)
[2017-10-25] MEDS: Acetaminophen 325 MG TAB PO PRN (03:08)
[2017-10-25] MEDS: cefTRIAXone\\ROCEPHIN 1 GM in Sodium Chloride 0.9% 100 ML IVPB SCH (03:09)
[2017-10-25 04:47] LABS: Hemoglobin 8.2 g/dL (14.0-18.0); Platelet Count 152 thou/uL (130-400)
[2017-10-25 05:01] LABS: BUN (Urea Nitrogen) 20 mg/dL (8.4-25.7); Calc. Creatinine Clearance 92 mL/min (70-130); Calcium 11.4 mg/dL (7.8-10.44); Estimated GFR-MDRD 74; Glucose 213 mg/dL (83-110)
[2017-10-25 05:12] LABS: Anion Gap 14 mmol/L (10-20); Carbon Dioxide 31 mmol/L (23-31); Chloride 99 mmol/L (98-107); Potassium 4.3 mmol/L (3.5-5.1); Sodium 140 mmol/L (136-145)
[2017-10-25] MEDS: Furosemide 40 MG/4 ML VIAL SLOW IVP SCH ×2 (05:36→13:24)
[2017-10-25] MEDS: Polyethylene Glycol 3350 17 GM Packet PO SCH (07:43)
[2017-10-25] MEDS: Cinacalcet HCl 30 MG TAB PO SCH (07:44)
[2017-10-25] MEDS: Allopurinol 300 MG TAB PO SCH (07:44)
[2017-10-25] MEDS: Apixaban 5 MG TAB PO SCH ×2 (07:44→20:26)
[2017-10-25] MEDS: Digoxin 0.25 MG TAB PO SCH (07:44)
[2017-10-25] MEDS: Atorvastatin Calcium 20 MG TAB PO SCH (07:45)
[2017-10-25] MEDS: Gabapentin 100 MG CAP PO SCH ×2 (07:45→20:28)
[2017-10-25] MEDS: Folic Acid 1 MG TAB PO SCH (07:45)
[2017-10-25] MEDS: Citalopram 20 MG TAB PO SCH (07:45)
[2017-10-25] MEDS: Lorazepam 2 MG/ML VIAL SLOW IVP PRN (07:46)
[2017-10-25] MEDS: Magnesium Oxide 400 MG TAB PO SCH ×2 (07:46→20:27)
[2017-10-25] MEDS: HumaLOG 300 UNITS/3 ML VIAL SC PRN ×4 (07:58→21:10)
[2017-10-25] MEDS: HumaLOG 300 UNITS/3 ML VIAL SC SCH ×3 (10:55→17:59)
[2017-10-25] MEDS ORDERED: Ziprasidone 20 MG VIAL IM SCH (12:30)
[2017-10-25 14:00] LABS: pH, Arterial 7.29 (7.35-7.45)
[2017-10-25 14:02] LABS: Actual Bicarbonate (HCO3a) 40.8 mEq/L (22-28); Base Excess (BEa) 11.9 mEq/L (-2.0 to +3.0); CO2 Tension 87.1 mmHg (35.0-45.0); Carboxyhemoglobin (COHb) 1.5 gm% (0.0-3.0); Hemoglobin (Hb) 9.5 g/dL (14.0-18.0); O2 Tension (PaO2) 72.3 mmHg (> 70.0)
[2017-10-25 14:03] LABS: ALV-art Gradient 74.065 (0-20); Calcium, Ionized 1.5 mmol/L (1.12-1.30); Potassium - ABG Lab 4.4 mmol/L (3.70-5.30); Puncture Site L RA
[2017-10-25] MEDS ORDERED: Albuterol Sulfate 2.5 mg/3 ml Neb NEB PRN (14:06)
--- NOTE | 2017-10-25 14:13 | PDOC.PN ---
- Subjective Encounter Start Date: 10/25/17 Encounter Start Time: 14:00 Patient is seen today, Alert and oriented, today, he called nurse as he was having chest pain, on evalauting, he said it was his lower Abdomen, and his sats went down to 60% but again, when it was checked on fingers its back to normal 92%, ABG was ordered, which showed Ph7.2 Co2 87, Po280, pt is very comfortable. - Objective Resuscitation Status: Resuscitation Status FULL:Full Resuscitation Vital Signs & Weight: Vital Signs (12 hours) Temp Pulse Resp BP Pulse Ox 10/25/17 08:00 98.3 F 87 24 H 90 L 10/25/17 07:57 98.3 F 87 24 H 134/57 L 90 L 10/25/17 07:45 75 10/25/17 07:44 75 10/25/17 04:00 98.1 F 75 18 143/78 H 95 Weight Admit Weight 209 lb Weight 218 lb 12.8 oz I&O: 10/24/17 10/25/17 10/26/17 06:59 06:59 06:59 Intake Total 3709 2230 900 Balance 3709 2230 900 Result Diagrams: 10/25/17 04:32 10/25/17 04:32 Additional Labs: Accuchecks 10/25/17 10/25/17 10/25/17 11:50 07:57 04:50 POC Glucose 240 H 250 H 215 H 10/24/17 10/24/17 19:29 16:02 POC Glucose 240 H 169 H Radiology Reviewed by me: Yes Phys Exam - Physical Examination HEENT: PERRLA, moist MMs Neck: no nodes, no JVD Respiratory: no wheezing, no rales, no rhonchi Cardiovascular: RRR, no significant murmur Gastrointestinal: positive bowel sounds Denterness left lower quadrant, Hernia epigastric. Musculoskeletal: no edema, pulses present Neurological: non-focal, normal sensation Lymphatic: no nodes Psychiatric: normal affect, A&O x 3 Dx/Plan (1) Acute chest pain Code(s): R07.9 - CHEST PAIN, UNSPECIFIED Status: Acute Comment: Pt actulaly has pain in Left lower quadrant, EKG showed Afib with LBBB, old ekg Not awailab; le. Ordered troponinsx2. 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 - MALIG NEOPLM OF CONN AND SOFT TISSUE OF HEAD, FACE AND NECK Status: Chronic Comment: s/p R cheek skin grafting, supportive mgmt (5) Chronic atrial fibrillation Code(s): I48.2 - CHRONIC ATRIAL FIBRILLATION Status: Chronic Comment: Rate controlled, continue Digoxin and Diltiazem, continue Eliquis (6) Hypercalcemia Code(s): E83.52 - HYPERCALCEMIA Status: Chronic Comment: Apparently chronic per pt report.Asymptomatic.PTH high ,likley Hyperparathyroidism.refuses further work up (7) COPD (chronic obstructive pulmonary disease) Status: Acute Comment: ABG showed hypercapnea but compensated with low o2, No signs of respiratory distress. Will COnsult Pulmonary, will start pt on Duonebs and Albuteral nebs, Will monitor closley, if persistant SOB , [place] [facility] (8) Constipation Code(s): K59.00 - CONSTIPATION, UNSPECIFIED Status: Acute Comment: NO BM since 5 days, tender Abdomemn, will do lactulose 30gm Q 6hr Until 2-3 loose BM.s - Plan cont current plan of care, plan discussed w/ family, PT/OT, manager social media, respiratory therapy, incentive spirometry, out of bed/ambulate, DVT proph w/ lovenox Plan for SNF placement at [place]. Discussed with CM. * . Review of Systems - Review of Systems Constitutional: negative: fever, chills, sweats, weakness, malaise, other Eyes: negative: Pain, Vision Change, Conjunctivae Inflammation, Eyelid Inflammation, Redness, Other ENT: negative: Ear Pain, Ear Discharge, Nose Pain, Nose Discharge, Nose Congestion, Mouth Pain, Mouth Swelling, Throat Pain, Throat Swelling, Other Respiratory: negative: Cough, Dry, Shortness of Breath, Hemoptysis, SOB with Excertion, Pleuritic Pain, Sputum, Wheezing Cardiovascular: chest pain Gastrointestinal: negative: Nausea, Vomiting, Abdominal Pain, Diarrhea, Constipation, Melena, Hematochezia, Other Musculoskeletal: negative: Neck Pain, Shoulder Pain, Arm Pain, Back Pain, Hand Pain, Leg Pain, Foot Pain, Other Skin: negative: Rash, Lesions, Jimmy, Bruising, Other - Medications/Allergies Allergies/Adverse Reactions: Allergies Allergy/AdvReac Type Severity Reaction Status Date / Time metformin Allergy Verified 10/16/17 18:03 Sulfa (Sulfonamide Allergy Verified 10/17/17 05:12 Antibiotics) Medications: Current Medications Acetaminophen (Tylenol) 650 mg PO Q4H PRN PRN Reason: Headache/Fever or Pain Last Admin: 10/25/17 03:08 Dose: 650 mg Albuterol Sulfate (Ventolin) 2.5 mg NEB Q2H PRN PRN Reason: Wheezing Albuterol/Ipratropium (Duoneb) 3 ml NEB [id number] Allopurinol (Zyloprim) 300 mg PO DAILY [facility] Last Admin: 10/25/17 07:44 Dose: 300 mg Apixaban (Eliquis) 5 mg PO BID [facility] Last Admin: 10/25/17 07:44 Dose: 5 mg Aspirin (Aspirin Chewable) 81 mg PO DAILY [facility] Last Admin: 10/25/17 07:45 Dose: 81 mg Atorvastatin Calcium (Lipitor) 20 mg PO DAILY [facility] Last Admin: 10/25/17 07:45 Dose: 20 mg Calcitonin [place] (Calcimar) 360 units SC [facility]ILY [facility] Cinacalcet (Sensipar) 30 mg PO QAM-[facility] Last Admin: 10/25/17 07:44 Dose: 30 mg Citalopram Hydrobromide (Celexa) 20 mg PO DAILY [facility] Last Admin: 10/25/17 07:45 Dose: 20 mg Clobetasol Propionate (Temovate 0.05% Cream) 0 gm TOP BIDPRN PRN PRN Reason: Dry Skin Dextrose/Water (Dextrose 50%) 25 gm SLOW IVP PRN PRN PRN Reason: Hypoglycemia Digoxin (Lanoxin) 0.25 mg PO DAILY [facility] Last Admin: 10/25/17 07:44 Dose: 0.25 mg Diltiazem HCl (Cardizem Cd) 120 mg PO DAILY [facility] Last Admin: 10/25/17 07:45 Dose: 120 mg Fluocinonide (Lidex 0.05% Cream) 0 gm TOP DAILYPRN PRN PRN Reason: Itching Folic Acid (Folvite) 1 mg PO DAILY [facility] Last Admin: 10/25/17 07:45 Dose: 1 mg Furosemide (Lasix) 40 mg SLOW IVP 0600,1400 [facility] Last Admin: 10/25/17 13:24 Dose: 40 mg Gabapentin (Neurontin) 100 mg PO BID [facility] Last Admin: 10/25/17 07:45 Dose: 100 mg Glucagon (Glucagon) 1 mg IM PRN PRN PRN Reason: Hypoglycemia Hydralazine HCl (Apresoline) 10 mg SLOW IVP Q4H PRN PRN Reason: Systolic BP > 180 Dextrose/Water (D5w) 1,000 mls @ 0 mls/hr IV .Q0M PRN PRN Reason: Hypoglycemia Ceftriaxone Sodium 1 gm/ (Sodium Chloride) 100 mls @ 200 mls/hr IVPB Q24HR [facility] Last Admin: 10/25/17 03:09 Dose: 100 mls Sodium Chloride (Normal Saline 0.9%) 1,000 mls @ 100 mls/hr IV .Q10H [facility] Last Admin: 10/25/17 13:28 Dose: 1,000 mls Vancomycin HCl 1.5 gm/ Sodium (Chloride) 300 mls @ 200 mls/hr IVPB Q24HR@2100 [facility] Last Admin: 10/24/17 20:47 Dose: 300 mls Insulin Human Lispro (Humalog) 0 units SC .MODERATE SLIDING SC PRN PRN Reason: Moderate Correctional Scale Last Admin: 10/25/17 12:53 Dose: 4 units Insulin Human Lispro (Humalog) 0 units SC .BEDTIME SLIDING SC PRN PRN Reason: Bedtime Correctional Scale Last Admin: 10/24/17 20:54 Dose: 2 unit Insulin Human Lispro (Humalog) 10 units SC TID[facility] Last Admin: 10/25/17 12:57 Dose: Not Given Ipratropium [place] (Atrovent) 2.5 ml NEB TIDPRN PRN PRN Reason: Wheezing Lactulose (Lactulose) 30 gm PO QID [facility] Latanoprost (Xalatan 0.005% Ophth Soln) 1 drop EA [facility] Last Admin: 10/24/17 20:47 Dose: 1 drop Lorazepam (Ativan) 0.5 mg SLOW IVP Q6H PRN PRN Reason: Anxiety/Agitation Last Admin: 10/25/17 07:46 Dose: 0.5 mg Losartan Potassium (Cozaar) 12.5 mg PO [facility] Last Admin: 10/24/17 20:45 Dose: 12.5 mg Magnesium Oxide (Magnesium Oxide) 400 mg PO BID [facility] Last Admin: 10/25/17 07:46 Dose: 400 mg Ondansetron HCl (Zofran) 4 mg IVP Q6H PRN PRN Reason: Nausea/Vomiting Last Admin: 10/22/17 12:10 Dose: 4 mg Polyethylene Glycol (Miralax) 17 gm PO DAILY [facility] Last Admin: 10/25/17 07:43 Dose: 17 gm Sodium Chloride (Flush - Normal Saline) 10 ml IVF Q12HR [facility] Last Admin: 10/25/17 10:56 Dose: 10 ml Sodium Chloride (Flush - Normal Saline) 10 ml IVF PRN PRN PRN Reason: Saline Flush
--- NOTE | 2017-10-25 14:24 | RAD ---
PORTABLE CHEST ONE VIEW: Date: 10-25-17 Time: 2:02 p.m. History: Respiratory distress. FINDINGS: Comparison is made with exam of 10-16-17. The heart is enlarged. Lungs are expanded with pulmonary vascular congestion. No pneumothoraces or la rge effusions are seen. IMPRESSION: Findings are suspicious for CHF. POS: [facility]
[2017-10-25 14:32] LABS: Troponin I 0.029 ng/mL (< 0.028)
--- NOTE | 2017-10-25 15:51 | RAD ---
ABDOMEN 1 VIEW: Date: 10/25/17 HISTORY: Abdominal pain. FINDINGS/IMPRESSION: There is fecal material in the colon. The bowel gas pattern is nonspecific. There are degenerative ch anges in the spine. POS: [facility]
[2017-10-25] MEDS: Arformoterol 15 MCG/2 ML NEB NEB SCH (18:47)
--- NOTE | 2017-10-25 20:11 | CON ---
DATE OF CONSULTATION: 10/25/2017 CONSULTING PHYSICIAN: Dr. Whaley. REASON FOR CONSULTATION: Elevated pCO2 on ABG. HISTORY OF PRESENT ILLNESS: History is obtained through speaking with the patient and reviewing saloni rds on the chart. The patient is a very difficult historian, so it is hard to get much information o ut of him at all. From what I can gather, ABG was done earlier today showing elevated pCO2 and a sli ghtly depressed pH. He had briefly desaturated. I do not know what his baseline ABG values, but thi s particular value showed a pH of 7.2, pCO2 of 87, pO2 of 80. The patient is awake, alert, and does not appear to be in any distress. He is currently in the hospital after being admitted on 10/17/[address] Esqueda for confusion and co ncern of facial cellulitis. He has hypercalcemia as a result of malignancy. 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 Apparently has been not responsive to treatment. PAST MEDICAL HISTORY: 1. Congestive heart failure. 2. Diabetes mellitus. 3. Hypertension. 4. Chronic obstructive pulmonary disease requiring oxygen at home. 5. Nephrolithiasis. 6. Stroke. PAST SURGICAL HISTORY: 1. Cholecystectomy. 2. Resection and skin grafting of the right cheek angiosarcoma. ALLERGIES: METFORMIN and SULFA. CURRENT MEDICATIONS: Tylenol, Ventolin, DuoNeb, allopurinol, Eliquis, aspirin, Lipitor, calcitonin, ceftriaxone, Sensipar, Celexa, D5W, Lanoxin, Cardizem-CD, Folvite, Lasix, Neurontin, Apresoline, Radha log insulin, Cozaar and MiraLax. SOCIAL HISTORY: Patient smoked in the remote past. He says he quit around 1994. Does not consume a lcohol. REVIEW OF SYSTEMS: Almost impossible to obtain because the patient could not stay focused. PHYSICAL EXAMINATION: VITAL SIGNS: Temperature 98.3, pulse 80, respirations 20, O2 sat running about 92% on 3 liters, bloo d pressure 134/57. HEENT: Remarkable for a tumor over the right side of his face. There is also skin graft in the righ t side of the face. NECK: No adenopathy or JVD. LUNGS: Poor air movement without wheezing or rhonchi. CARDIAC: S1, S2 regular. ABDOMEN: Morbidly obese, soft. EXTREMITIES: No clubbing, cyanosis, or edema. LABORATORY DATA: Sodium 140, potassium 4.3, chloride 99, CO2 of 31, BUN 20, creatinine 0.9, glucose 74, calcium 11.4, troponin 0.029. ABG: pH 7.29, pCO2 of 87, pO2 of 73 that was on 3 liters nasal ca nnula. Hematocrit 27.3, platelet count 152. IMAGING: Chest x-ray demonstrates pulmonary vascular congestion compared to 10/16/2017. The x-ray i s dramatically worse. On 10/16/2017, the x-ray had more of a nodular appearance suggests a possible metastasis. ASSESSMENT: 1. Likely some degree of fluid overload. 2. 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 3. Angiosarcoma of the face. 4. Severe hypercalcemia. RECOMMENDATIONS: This patient is in bad shape and I would think that a DNR order would be the best. Right now, he is not respiratory extremis. I would consult palliative care for an opinion. I would continue to diurese the patient and continue the antibiotics for the time being. I would withhold a ny sedative.
[2017-10-25] MEDS: Vancomycin HCl 1.5 GM in Sodium Chloride 0.9% 250 ML 300 ML IVPB SCH (20:27)
[2017-10-25] MEDS: Losartan 25 MG TAB PO SCH (20:28)
[2017-10-25] MEDS: Latanoprost 0.005% Ophth Soln 2.5 ml Bottle EA EYE SCH (20:47)
--- NOTE | 2017-10-25 23:10 | PRG ---
DATE OF SERVICE: 10/25/2017 SUBJECTIVE: The patient was seen and examined and is not feeling well today and seems a little bit c onfused, noted with the following vital signs. OBJECTIVE: VITAL SIGNS: Afebrile with temperature 98.3, pulse 87, respiratory rate 24, blood pressure . HEENT: Unremarkable. CARDIOVASCULAR: First and second heart sounds were heard. RESPIRATORY: Reveals some diminished breath sounds. DIGESTIVE: Revealed an obese abdomen. EXTREMITIES: No peripheral edema. SKIN: No new gross rash. LABORATORY INVESTIGATION: Calcium down to the level, blood gas consistent with hypercapnic respirato ry failure. IMPRESSION: 1. Severe hypercalcemia responding to treatment. 2. Primary hyperparathyroidism. 3. Hypercapnic respiratory failure. 4. Congestive heart failure. PLAN: 1. Discontinue IV fluid. 2. Continue IV loop diuretic. 3. We will defer to the pulmonary team . 4. We will continue with current management of hyperkalemia.
[2017-10-26] MEDS: cefTRIAXone\\ROCEPHIN 1 GM in Sodium Chloride 0.9% 100 ML IVPB SCH (03:12)
[2017-10-26 04:46] LABS: Anion Gap 12 mmol/L (10-20); BUN (Urea Nitrogen) 25 mg/dL (8.4-25.7); Calc. Creatinine Clearance 78 mL/min (70-130); Calcium 11.3 mg/dL (7.8-10.44); Carbon Dioxide 33 mmol/L (23-31); Chloride 99 mmol/L (98-107); Estimated GFR-MDRD 62; Glucose 320 mg/dL (83-110); Potassium 5.4 mmol/L (3.5-5.1); Sodium 139 mmol/L (136-145)
[2017-10-26] MEDS: Furosemide 40 MG/4 ML VIAL SLOW IVP SCH ×2 (05:04→14:53)
[2017-10-26] MEDS: Arformoterol 15 MCG/2 ML NEB NEB SCH ×2 (06:17→18:18)
[2017-10-26] MEDS ORDERED: Cinacalcet HCl 30 MG TAB PO SCH ×2 (08:31→08:45)
--- NOTE | 2017-10-26 08:39 | PRG ---
DATE OF SERVICE: 10/26/2017 This patient remains confused, although pleasant and in no acute distress. PHYSICAL EXAMINATION: VITAL SIGNS: Temperature 97.6, pulse 66, respirations 20, O2 sat 93% on 3 liters, blood pressure 144 /58. HEENT: Remarkable for the tumor of his right cheek. NECK: No JVD. LUNGS: Clear, but distant breath sounds. CARDIAC: S1 and S2 regular. ABDOMEN: Soft, protuberant. EXTREMITIES: Edematous. LABORATORY DATA: Sodium 139, potassium 5.4, chloride 99, CO2 33, BUN 25, creatinine 1.1, glucose 320 , calcium level 11.3. ASSESSMENT: This patient has a multitude of problems including diastolic cardiac dysfunction, fluid overload, acute on chronic hypercapnic respiratory insufficiency, angiosarcoma the face, and hypercal cemia. In my opinion, the patient probably does not have long to live. RECOMMENDATIONS: I really think the focus needs to be on palliative measures. I do not think any fo rm of aggressive therapy is going to change his underlying poor prognosis. I do not think the patien t is competent to make decisions for himself, which makes this even more complicated. I have spoken to the palliative care folks to see if they would help us out. I have reviewed the orders, I agree w ith nebulization therapy. I will keep his oxygen as low flow as possible and continue to gently diur silvia the patient. His prognosis is extremely poor.
[2017-10-26] MEDS: Allopurinol 300 MG TAB PO SCH (10:29)
[2017-10-26] MEDS: Gabapentin 100 MG CAP PO SCH ×2 (10:29→20:32)
[2017-10-26] MEDS: Magnesium Oxide 400 MG TAB PO SCH ×2 (10:30→20:32)
[2017-10-26] MEDS: Atorvastatin Calcium 20 MG TAB PO SCH (10:30)
[2017-10-26] MEDS: Citalopram 20 MG TAB PO SCH (10:30)
[2017-10-26] MEDS: Apixaban 5 MG TAB PO SCH ×2 (10:31→20:32)
[2017-10-26] MEDS: Folic Acid 1 MG TAB PO SCH (10:31)
[2017-10-26] MEDS: HumaLOG 300 UNITS/3 ML VIAL SC SCH ×3 (10:32→18:05)
[2017-10-26] MEDS: Digoxin 0.25 MG TAB PO SCH (10:34)
[2017-10-26] MEDS: Polyethylene Glycol 3350 17 GM Packet PO SCH (10:41)
[2017-10-26] MEDS: Cinacalcet HCl 30 MG TAB PO SCH (10:49)
[2017-10-26] MEDS: HumaLOG 300 UNITS/3 ML VIAL SC PRN ×2 (12:48→21:52)
--- NOTE | 2017-10-26 15:30 | PDOC.PN ---
- Subjective Encounter Start Date: 10/26/17 Encounter Start Time: 15:28 Mr. Beyer was seen today in follow-up of angiosarcoma of the face, and hypercalcemia. He does not have any new complaints. He has been refusing to take medications. - Objective Resuscitation Status: Resuscitation Status FULL:Full Resuscitation MAR Reviewed: Yes Vital Signs & Weight: Vital Signs (12 hours) Temp Pulse Resp BP BP Pulse Ox 10/26/17 13:49 65 18 92 L 10/26/17 10:35 61 18 93 L 10/26/17 10:34 72 10/26/17 10:30 71 144/58 H 10/26/17 07:30 97.6 F 66 20 144/58 H 93 L 10/26/17 06:15 51 L 16 92 L Weight Admit Weight 209 lb Weight 218 lb 12.8 oz I&O: 10/25/17 10/26/17 10/27/17 06:59 06:59 06:59 Intake Total 2230 1850 Balance 2230 1850 Result Diagrams: 10/25/17 04:32 10/26/17 04:00 Additional Labs: Accuchecks 10/26/17 10/26/17 10/25/17 11:14 04:21 19:45 POC Glucose 490 H 297 H 251 H 10/25/17 16:36 POC Glucose 282 H Phys Exam - Physical Examination HEENT: PERRLA + right sided swelling and erythema of the face Respiratory: no wheezing, no rales, no rhonchi, clear to auscultation bilateral Cardiovascular: RRR, no significant murmur, no rub Gastrointestinal: soft, non-tender, positive bowel sounds Musculoskeletal: no edema Dx/Plan (1) Hyperkalemia Code(s): E87.5 - HYPERKALEMIA Status: Acute (2) Facial cellulitis Code(s): L03.211 - CELLULITIS OF FACE Status: Acute Comment: Suspected, continue Rocephin/Vancomycin and monitor clinically.Can be due to angiosarcoma (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 - MALIG NEOPLM OF CONN AND SOFT TISSUE OF HEAD, FACE AND NECK Status: Chronic Comment: s/p R cheek skin grafting, supportive mgmt (4) Chronic atrial fibrillation Code(s): I48.2 - CHRONIC ATRIAL FIBRILLATION Status: Chronic Comment: Rate controlled, continue Digoxin and Diltiazem, continue Eliquis (5) Hypercalcemia Code(s): E83.52 - HYPERCALCEMIA Status: Chronic Comment: Apparently chronic per pt report.Asymptomatic.PTH high ,likley Hyperparathyroidism.refuses further work up (6) Primary hyperparathyroidism Code(s): E21.0 - PRIMARY HYPERPARATHYROIDISM Status: Chronic - Plan * Angiosarcoma of the face- Oncology evaluation noted. He is not a good candidate for any intervention * Cellulitis- It is unclear if this inflammatory process is from infection versus, due to recurrence of the tunor- I suspect we could de-escalate his antibiotics soon * Hypercalcemia- due to Primary Hyperparathyroidism- he has refused work-up such as Parathyroid scan, and surgery- given his overall prognosis related to the cancer, this is actually a reasonable approach-continue to treat medically- Lasix, IV fluids, and Sensipar * Hyperkalemia - will give a dose of Kayexalate- continue to monitor * Awaiting placement * I verified the patient's code status, and it is DNR. He does not want CPR, or Intubation.
[2017-10-26 20:28] LABS: Vancomycin, Trough 23.3 ug/mL
[2017-10-26] MEDS: Losartan 25 MG TAB PO SCH (20:32)
[2017-10-26] MEDS: Vancomycin HCl 1.5 GM in Sodium Chloride 0.9% 250 ML 300 ML IVPB SCH (20:37)
[2017-10-26] MEDS: Latanoprost 0.005% Ophth Soln 2.5 ml Bottle EA EYE SCH (20:43)
--- NOTE | 2017-10-26 20:57 | PRG ---
DATE OF SERVICE: 10/26/2017 SUBJECTIVE: The patient was seen and examined noted with following vital signs. OBJECTIVE: VITAL SIGNS: Afebrile with temperature 98.4, pulse 90, respiratory rate of 18, O2 sat of 90%, and b lood pressure 155/65. HEENT: Unremarkable with moist oral mucosa. NECK: Supple, No conjunctival injection or icterus. CARDIOVASCULAR: First and second heart sounds were heard. RESPIRATORY: Clear to auscultation. DIGESTIVE: Revealed a benign abdomen with positive bowel sounds. EXTREMITIES: No peripheral edema. SKIN: No new gross rash. LYMPHATICS: No peripheral lymphadenopathy. IMPRESSION: 1. Hyperkalemia, query cause. 2. Severe hypercalcemia in the context. 3. Primary hyperparathyroidism. PLAN: 1. We will continue with diuresis with loop diuretic agents. 2. We will increase the Sensipar from 30 mg to 60 mg. 3. Continue to monitor the calcium level.
[2017-10-26] MEDS: Acetaminophen 325 MG TAB PO PRN (22:09)
[2017-10-27] MEDS: cefTRIAXone\\ROCEPHIN 1 GM in Sodium Chloride 0.9% 100 ML IVPB SCH (05:10)
[2017-10-27] MEDS: Furosemide 40 MG/4 ML VIAL SLOW IVP SCH ×2 (05:14→13:05)
[2017-10-27 05:22] LABS: Platelet Count 162 thou/uL (130-400)
[2017-10-27 05:26] LABS: Anion Gap 11 mmol/L (10-20); BUN (Urea Nitrogen) 29 mg/dL (8.4-25.7); Calc. Creatinine Clearance 81 mL/min (70-130); Calcium 10.8 mg/dL (7.8-10.44); Carbon Dioxide 36 mmol/L (23-31); Chloride 95 mmol/L (98-107); Estimated GFR-MDRD 64; Glucose 305 mg/dL (83-110); Potassium 4.8 mmol/L (3.5-5.1); Sodium 137 mmol/L (136-145)
[2017-10-27] MEDS ORDERED: Cinacalcet HCl 30 MG TAB PO SCH (08:00)
--- NOTE | 2017-10-27 08:24 | PRG ---
DATE OF SERVICE: 10/27/2017 The patient is angry, upset, cursing at me, does not appear to be in any respiratory distress. PHYSICAL EXAMINATION: VITAL SIGNS: Temperature 97.6, pulse 68, respiration 20, O2 sat 95% on 3 liters, blood pressure 150/ 77. HEENT: Remarkable for the tumor on the right cheek. NECK: No JVD. LUNGS: Clear without wheezing. CARDIAC: S1 and S2 regular. ABDOMEN: Soft, nontender. EXTREMITIES: Edematous throughout. LABORATORY DATA: Hemoglobin 8, hematocrit 26.9, platelet count 162. Sodium 137, potassium 4.8, chlo ride 95, CO2 36, BUN 29, creatinine 1.1, glucose 305, calcium 10.8. ASSESSMENT: 1. Chronic obstructive pulmonary disease. 2. Hypercalcemia of malignancy. 3. Personality disorder. 4. Diastolic dysfunction. PLAN: The patient was made DNR yesterday. I agree with the plans of palliative care. He will nitza nue with nebulization therapy and low flow oxygen. There is no further pulmonary recommendations. W e will sign off. Please recall if further assistance needed.
[2017-10-27] MEDS: Polyethylene Glycol 3350 17 GM Packet PO SCH (08:49)
[2017-10-27] MEDS: Atorvastatin Calcium 20 MG TAB PO SCH (08:50)
[2017-10-27] MEDS: Citalopram 20 MG TAB PO SCH (08:50)
[2017-10-27] MEDS: Digoxin 0.25 MG TAB PO SCH (08:50)
[2017-10-27] MEDS: Magnesium Oxide 400 MG TAB PO SCH (08:50)
[2017-10-27] MEDS: Apixaban 5 MG TAB PO SCH (08:50)
[2017-10-27] MEDS: Folic Acid 1 MG TAB PO SCH (08:51)
[2017-10-27] MEDS: Allopurinol 300 MG TAB PO SCH (08:51)
[2017-10-27] MEDS: Gabapentin 100 MG CAP PO SCH (08:52)
[2017-10-27] MEDS: HumaLOG 300 UNITS/3 ML VIAL SC SCH ×2 (08:56→13:05)
[2017-10-27] MEDS: Arformoterol 15 MCG/2 ML NEB NEB SCH (11:01)
--- NOTE | 2017-10-27 12:19 | PDOC.PN ---
- Subjective Encounter Start Date: 10/27/17 Encounter Start Time: 12:15 Mr. Beyer was seen today in follow-up, and he does not have any new complaints. - Objective Resuscitation Status: Resuscitation Status DNR:Do Not Resuscitate MAR Reviewed: Yes Vital Signs & Weight: Vital Signs (12 hours) Temp Pulse Resp BP BP Pulse Ox 10/27/17 08:50 68 162/77 H 10/27/17 08:00 97.6 F 68 20 95 10/27/17 07:28 97.6 F 68 20 95 10/27/17 06:17 93 L 10/27/17 04:04 98.3 F 69 16 152/77 H 93 L Weight Admit Weight 209 lb Weight 218 lb 12.8 oz I&O: 10/26/17 10/27/17 10/28/17 06:59 06:59 06:59 Intake Total 1850 Balance 1850 Result Diagrams: 10/27/17 04:41 10/27/17 04:41 Additional Labs: Accuchecks 10/27/17 10/26/17 10/26/17 04:08 19:42 16:45 POC Glucose 300 H 372 H 440 H Phys Exam - Physical Examination HEENT: PERRLA + facial changes are the same Respiratory: no wheezing, no rales, no rhonchi, clear to auscultation bilateral Cardiovascular: RRR, no significant murmur, no rub Gastrointestinal: soft, non-tender, positive bowel sounds Musculoskeletal: no edema Dx/Plan (1) Hyperkalemia Code(s): E87.5 - HYPERKALEMIA Status: Acute (2) Facial cellulitis Code(s): L03.211 - CELLULITIS OF FACE Status: Acute Comment: Suspected, continue Rocephin/Vancomycin and monitor clinically.Can be due to angiosarcoma (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 - MALIG NEOPLM OF CONN AND SOFT TISSUE OF HEAD, FACE AND NECK Status: Chronic Comment: s/p R cheek skin grafting, supportive mgmt (4) Chronic atrial fibrillation Code(s): I48.2 - CHRONIC ATRIAL FIBRILLATION Status: Chronic Comment: Rate controlled, continue Digoxin and Diltiazem, continue Eliquis (5) Hypercalcemia Code(s): E83.52 - HYPERCALCEMIA Status: Chronic Comment: Apparently chronic per pt report.Asymptomatic.PTH high ,likley Hyperparathyroidism.refuses further work up (6) Primary hyperparathyroidism Code(s): E21.0 - PRIMARY HYPERPARATHYROIDISM Status: Chronic - Plan * Patient has been approved for [facility] in [place]. * He is stable for discharge * Will change to oral antibiotics * Nestor consult with Nephrology as to what o discharge him on regarding his Primary Hyperparathyroidism .
[2017-10-27] MEDS: HumaLOG 300 UNITS/3 ML VIAL SC PRN (13:06)
--- NOTE | 2017-10-27 15:08 | EKG ---
Test Reason : C/O CHEST PAIN Blood Pressure : / mmHG Vent. Rate : 096 BPM Atrial Rate : 100 BPM P-R Int : 000 ms QRS Dur : 152 ms QT Int : 370 ms P-R-T Axes : 000 113 -11 degrees QTc Int : 467 ms Atrial fibrillation Right bundle branch block Left posterior fascicular block Bifascicular block Abnormal ECG Confirmed by CARINA MCKINNEY, DAISY ([id number]) on 10/27/2017 3:08:07 PM Referred By: ADI Confirmed By:DAISY LIM MD
[2017-10-27 17:10] VITALS: BP 105/64; TEMP 98
[2017-10-27] MEDS ORDERED: Vancomycin HCl 1 GM in Premix Bag 1 BAG IVPB SCH (23:59)
--- NOTE | 2017-10-28 02:13 | DIS ---
DATE OF ADMISSION: 10/16/2017 DATE OF DISCHARGE: 10/27/2017 DISCHARGE DISPOSITION: To the fdc facility in [place]. PRIMARY CARE PHYSICIAN: Dr. Amadeo Lane. DISCHARGE DIAGNOSES: 1. Cellulitis to right side of the face. 2. Angiosarcoma of the face. 3. Chronic heart failure, unknown type. 4. Diabetes mellitus, type 2. 5. Gastroesophageal reflux disease. 6. Chronic obstructive pulmonary disease. 7. Chronic respiratory failure secondary to chronic obstructive pulmonary disease. 8. Hypertension. 9. Hypercalcemia secondary to primary hyperparathyroidism. DISCHARGE MEDICATIONS: Include Keflex 500 mg p.o. daily as well as Sensipar 60 mg daily, docusate so dium 1 tablet twice a day, MiraLax 17 grams daily, nystatin 60 grams topical as needed, bacitracin oi ntment as needed, magnesium oxide 500 mg daily, Cozaar 12.5 mg at bedtime, latanoprost 0.005% at bedt irma in each eye, Atrovent nebs 3 times a day as needed, Lantus insulin 30 units twice a day, Novolog 10 units t.i.d. with meals, Neurontin 100 mg twice a day, folic acid 1 mg daily, Lidex cream daily as needed, Cardizem 120 mg daily, digoxin 0.25 mg daily, Temovate 0.05% topical as needed, citalopram 2 0 mg daily, Bumex 1 mg twice a day, Lipitor 20 mg daily, aspirin 81 mg daily, and allopurinol 300 mg daily. CODE STATUS: DNR. ALLERGIES: METFORMIN and SULFA. PROCEDURES DONE DURING ADMISSION: The patient had a CT scan of the facial bones, there are post-surg ical changes of the soft tissue, edema in multiple areas of the surgical flap including the right mal ar region. There was no evidence of any abscess. There are at least three focal soft tissue densiti es in different areas of the region of the flaps. This is suspicious for neoplastic tumor recurrence . The patient had a CT scan of the brain as a result of the patient having a fall which was negative for any acute intracranial abnormality or bleed. HOSPITAL COURSE: Mr. Beyer is a pleasant 72-year-old gentleman who was sent over from the senior living due to concerns for altered mental status as well as a possible cellulitis of the face. The pat ient has a history of angiosarcoma in which he has had a surgical resection of the tumor and a flap p laced and the area around the flap appeared to be red with some surrounding erythema and for this craig son, he was started on broad spectrum IV antibiotics. There was also concern for recurrence of the t umor in this area. He was also found to have a calcium of 14.5 on admission. This was likely the ca use for his altered mental status. He was started on IV fluids and a PTH and PTH related peptide as well as urine calcium levels were obtained. His PTH level was over 400 and he had high urine calcium levels. For this reason, his symptoms were consistent with primary hyperparathyroidism. He admitte d that he has had elevated calcium for decades and has not sought definitive treatment. He was seen by our tankroom tender here it was recommended that he have a parathyroid scan and possible excision of the tumors or excision of an adenoma is present. The patient decided against any aggressive treatmen t. Also given that his cancer was advanced and recurrent. Oncology was consulted and it was felt th at he would not benefit from any additional chemotherapy or other oncological intervention. He also had fairly severe COPD and for this reason, the patient was considering palliative care and even hosp ice therapy. Therefore, the patient was transferred to a fdc facility in [place] and he is unlikely to be able to care for himself and he would continue with medical treatment for the hypercal cemia with Sensipar and continue Keflex for the cellulitis which the inflammation was likely more rel ated to cancer recurrence than an actual infection and he was transferred on 10/27/2017.
--- NOTE | 2017-11-01 07:14 | PQF ---
MARLEY RIDLEY TONI MD [id number]- [id number] CLINICAL DOCUMENTATION CLARIFICATION FORM: POST DISCHARGE DATE: 11/01/2018 ATTN: Dr. Esqueda Please exercise your independent, professional judgment in responding to the clarification form. Clinical indicators are provided on the bottom of this form for your review Please check appropriate box(s): [ ] Cellulitis to right side of face is a postoperative complication related to recent surgery [ X ] Cellulitis to right side of face is not a postoperative complication related to recent surgery [ ] Other diagnosis (please specify) [ ] Unable to determine In addition, please specify: Present on Admission (POA): [X ] Yes [ ] No [ ] Unable to determine CLINICAL INDICATORS - SIGNS / SYMPTOMS / LABS Per H&P: He appeared lethargic and confused and there were concerns that the area where he has had a skin graft for angiosarcoma had become infected. He does have some redness to the right side of his face and around the incision of the previous skin graft with a punctate lesion towards the base of the incision. Per CT of the facial bones: There are post-surgical changes of the soft tissue , edema in multiple areas of the surgical flap including the right malar region. No evidence of any abscess. There are at least three focal soft tissue densities in different areas of the region of the flaps. Per discharge Surgical resection of tumor and a flap placed and the area around the flap appeared to be red with some surrounding erythema. RISK FACTORS (per H&P) Recent surgery of skin graft/skin flap for angiosarcoma of the face. TREATMENT: (per medications) IV Zosyn. IV Rocephin. IV Vancomycin. IV Fluids (This form is maintained as a part of the permanent medical record) 2014 [employer]. All Rights Reserved Radha [email or web address] [phone] MTDHilda
--- NOTE | 2017-11-01 07:39 | PQF ---
MARLEY RIDLEY TONI MD [id number] CLINICAL DOCUMENTATION CLARIFICATION FORM: POST DISCHARGE DATE: 11/01/2017 ATTN: Dr. Esqueda Please exercise your independent, professional judgment in responding to the clarification form. Clinical indicators are provided on the bottom of this form for your review Please check appropriate box(s): [ ] Acute Respiratory Failure: [ ] with Hypoxia [ ] with Hypercapnia [ X ] Acute On Chronic Respiratory Failure: [ ] with Hypoxia [ ] with Hypercapnia [X ] Acute Respiratory Failure due to: (etiology) COPD exacerbation, and acute on chronic diastolic heart failure [ ] Acute Respiratory Insufficiency [ ] Chronic Respiratory Failure only [ ] with Hypoxia [ ] with Hypercapnia [ ] Other diagnosis (please specify) [ ] Unable to determine In addition, please specify: Present on Admission (POA): [ X ] Yes [ ] No [ ] Unable to determine For continuity of documentation, please document condition throughout progress notes and discharge summary. Thank You. CLINICAL INDICATORS - SIGNS / SYMPTOMS / LABS Per 10/26 pulmonology progress note: This patient has a multitude or problems including diastolic cardiac dysfunction, fluid overload, acute on chronic hypercapnic respiratory insufficiency, angiosarcoma the face and hypercalcemia. O2 sat 93% on 3 liters. Respirations 20. Per 10/25 progress note Ezeanuna): Hypercapnic respiratory failure. Calcium down to the level, blood gas consistent with hypercapnic respiratory failure. Per 10/25 pulmonology consult: Elevated pCO2 on ABG. ABG done earlier today showing elevated pCO Per discharge summary: Chronic respiratory failure secondary to chronic obstructive pulmonary disease. and a slightly depressed pH. Had briefly desaturation. Value showed a pH of 7.2, pCO0 of 87 and pO2 of 80. 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 RISK FACTORS (per H&P) COPD. CHF. History of tobacco abuse. TREATMENTS: (per medications/progress notes/consults. IV Solumedrol. Oxygen. Monitoring of oxygenation status. Pulmonary Consult. (This form is maintained as a part of the permanent medical record) 2014 [facility]. All Rights Reserved Radha [phone] MTDHilda
--- NOTE | 2017-11-01 08:06 | PQF ---
MARLEY MCKENNA TONI MD [id number]- [id number] CLINICAL DOCUMENTATION CLARIFICATION FORM: POST DISCHARGE DATE: 11/01/2017 ATTN: Dr. Esqueda Please exercise your independent, professional judgment in responding to the clarification form. Clinical indicators are provided on the bottom of this form for your review Please check appropriate box(s): HEART FAILURE: A. TYPE: [ ] Systolic / HFrEF [ X ] Diastolic / HFpEF [ ] Combined Systolic / Diastolic B. ACUITY [ ] Acute [ X ] Acute on Chronic [ ] Chronic [ ] Other diagnosis (please specify) [ ] Unable to determine In addition, please specify: Present on Admission (POA): [ X ] Yes [ ] No [ ] Unable to determine For continuity of documentation, please document condition throughout progress notes and discharge summary. Thank You. CLINICAL INDICATORS - SIGNS / SYMPTOMS / LABS Per 10/22 and 10/25 progress notes (Dr. Patterson): We will likely consider IV loop diuretic, especially the patient begins to show evidence of shortness of breath, fluid overload and discontinue the oral Bumex. Congestive heart failure , fluid overload. Continue IV loop diuretic. Per 10/26 and 10/27 pulmonology progress notes: Diastolic cardiac dysfunction. Extremities: Edematous throughout. Per discharge summary: Chronic heart failure, unknown type. RISKS: (per H&P) Hypertension TREATMENTS: IV Lasix beginning 10/24. (This form is maintained as a part of the permanent medical record) 2014 [employer] All Rights Reserved Radha [email or web address] [phone] AMANDA
== END 2017-10-27 16:57 | DRG 570 ==
LOC: ERS 14:20 → 2NO 19:57 → T4-B 10-18 15:24
PROVIDERS: ADMIT Internal Medicine; ATTEND Internal Medicine
PROC: 0JB90ZZ Excision of Buttock Subcutaneous Tissue and Fascia, Open Approach (ICD-10-PCS; principal; 2017-10-19)
DX: L03.211 Cellulitis of face (principal); L89.323 Pressure ulcer of left buttock, stage 3; J96.10 Chronic respiratory failure, unspecified whether with hypoxia or hypercapnia; I11.0 Hypertensive heart disease with heart failure; I50.9 Heart failure, unspecified; E11.9 Type 2 diabetes mellitus without complications; K21.9 Gastro-esophageal reflux disease without esophagitis; E78.5 Hyperlipidemia, unspecified; J44.9 Chronic obstructive pulmonary disease, unspecified; E21.0 Primary hyperparathyroidism; C76.0 Malignant neoplasm of head, face and neck; K59.00 Constipation, unspecified; I48.2 Chronic atrial fibrillation; E87.5 Hyperkalemia; Z66 Do not resuscitate; Z86.73 Personal history of transient ischemic attack (TIA), and cerebral infarction without residual deficits; Z87.891 Personal history of nicotine dependence; Z88.2 Allergy status to sulfonamides; Z88.8 Allergy status to other drugs, medicaments and biological substances; Z79.02 Long term (current) use of antithrombotics/antiplatelets; Z79.82 Long term (current) use of aspirin; Z79.4 Long term (current) use of insulin; Z79.899 Other long term (current) drug therapy
CPT/HCPCS: 36415; 36416; 70450; 70487; 71045; 74018; 80048; 80053; 80202; 81003; 81015; 82306; 82340; 82805; 83540; 83550; 83735; 83970; 84100; 84439; 84443; 84484; 85007; 85014; 85018; 85025; 85027; 85049; 87040; 87086; 88304; 93005; 93010; 94640; 94760; 96365; 96367; A4216; G8978-GP-CM; G8979-GP-CK; G8987-GO-CM; G8988-GO-CK; J0696; J1630; J1940; J2001; J2060; J2250; J2405; J2543; J2920; J3010; J3370; J3489; J7050; J7620